=== PATIENT | female | born 1940 | race Caucasian/White ===

== ENCOUNTER 2023-07-08 08:18 | Outpatient (AMB) | payer MEDICARE, SELFPAY ==
[2023-07-08 08:21] VITALS: BP 130/82; PULSE 102; O2SAT 96; BMI 21.3
--- NOTE | 2023-07-08 08:21 | MHC.OFFWIV ---
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 Patient fell at home yesterday and landed hard on the wooden floor. She did not lose consciousness. She slipped and fell. She noticed her left forearm and wrist immediately swelling up. Physical Exam Vital Signs: Last Vital Signs Pulse 102 H 07/08/23 08:21 BP 130/82 07/08/23 08:21 Pulse Ox 96 07/08/23 08:21 Oxygen Delivery Method Room Air 07/08/23 08:21 BMI result Body Mass Index 21.3 Const General: cooperative and healthy appearing Nutritional Appearance: well nourished Orientation/consciousness: patient oriented x3 Limitations: no limitations HEENT Other: Scalp: No visible bruising. Head: Yes normal to inspection Eyes General: appearance normal, both eyes and all related structures Neck Neck: Yes normal visual inspection Chest Chest palpation & inspection: normal palpation of entire chest wall Resp Effort & Inspection: normal respiratory effort Neuro General: patient oriented x3 Extrem Other: Left forearm/wrist: Swelling on the dorsum of the forearm with pain on flexion. Significant bruising present. Assessment & Plan Assessment & Plan (1) Contusion, wrist: Code(s): S60.219A - Contusion of unspecified wrist, initial encounter Plan: X-ray images reviewed by me. Fracture of the head of radius of left wrist. Spoke to Ortho. E consult placed. They will see the patient at 1 pm for splinting. Information provided to the patient. Orders: Orders XR forearm LT 2V Today S60.219A - Contusion of unspecified wrist, initial encounter XR wrist LT min 3V Today S60.219A - Contusion of unspecified wrist, initial encounter Coding Level of Care Code New Pt Level 4 (01093) Diagnoses Contusion, wrist S60.219A
--- NOTE | 2023-07-08 09:23 | AM.OFFWIN_ITS ---
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) Allergies amoxicillin Allergy (Intermediate, Verified 07/08/23 08:39) Gastrointestinal Upset metoprolol Allergy (Intermediate, Verified 07/08/23 08:39) Unresponsive Medication List - Last Reconciled 07/08/23 by Kendall Mosqueda MD apixaban (Eliquis) 2.5 mg PO BID PFSH Medical History (Updated 07/08/23 @ 13:00 by Rachel Harden CMA) History of cardioversion Surgical History (Updated 07/08/23 @ 13:10 by Jalen Fried PA-C) H/O cardiac radiofrequency ablation Social History (Updated 07/08/23 @ 13:00 by Racehl Harden CMA) Current occupational status: retired Physical Exam Vital Signs: Last Vital Signs Pulse 102 H 07/08/23 08:21 BP 130/82 07/08/23 08:21 Pulse Ox 96 07/08/23 08:21 Oxygen Delivery Method Room Air 07/08/23 08:21 BMI result Body Mass Index 21.3 Results AMB Rapid Strep AMB Rapid Strep Negative Last Edit by Liliana Buchanan on 07/08/23 09:24 Results Reviewed Results Reviewed: Laboratory Last Values Strep Scn Rapid Clinic Negative 07/08/23 09:23 Assessment & Plan Assessment & Plan Orders: Orders XR forearm LT 2V Today S60.219A - Contusion of unspecified wrist, initial encounter XR wrist LT min 3V Today S60.219A - Contusion of unspecified wrist, initial encounter Referrals Orthopedics Referral S52.122A - Displaced fracture of head of left radius, initial encounter for closed fracture Coding
== END 2023-07-08 09:57 | disposition home or self-care (01) ==
PROVIDERS: Visit Provider Internal Medicine
DX: S60.219A Contusion of unspecified wrist, initial encounter (principal)
CPT/HCPCS: 99204

== ENCOUNTER 2023-07-08 08:35 | Outpatient (REF) | payer MEDICARE, SELFPAY ==
--- NOTE | ~2023-07-08 | XR_ITS ---
EXAMINATION: XR WRIST, LEFT XR FOREARM, LEFT CLINICAL INFORMATION: Contusion COMPARISON: None available. TECHNIQUE: 2 views left forearm 3 views of the left wrist FINDINGS: Transversely oriented mildly impacted comminuted fracture of the distal radius with intra-articular extension. Mildly displaced ulnar styloid fracture fragment. Multi joint arthritic changes. Joint space alignment are otherwise maintained. Soft tissues are unremarkable. XR/XR wrist LT min 3V IMPRESSION: 1. Transversely oriented mildly impacted comminuted fracture of the distal radius with intra-articular extension. 2. Mildly displaced ulnar styloid fracture fragment. 3. Multi joint arthritic changes.
--- NOTE | ~2023-07-08 | XR_ITS ---
EXAMINATION: XR WRIST, LEFT XR FOREARM, LEFT CLINICAL INFORMATION: Contusion COMPARISON: None available. TECHNIQUE: 2 views left forearm 3 views of the left wrist FINDINGS: Transversely oriented mildly impacted comminuted fracture of the distal radius with intra-articular extension. Mildly displaced ulnar styloid fracture fragment. Multi joint arthritic changes. Joint space alignment are otherwise maintained. Soft tissues are unremarkable. XR/XR forearm LT 2V IMPRESSION: 1. Transversely oriented mildly impacted comminuted fracture of the distal radius with intra-articular extension. 2. Mildly displaced ulnar styloid fracture fragment. 3. Multi joint arthritic changes.
== END 2023-07-08 08:36 | disposition home or self-care (01) ==
LOC: HO.HMGCX 08:35
PROVIDERS: PCP Nurse Practitioner Family; Visit Provider Internal Medicine
DX: S52.502A Unspecified fracture of the lower end of left radius, initial encounter for closed fracture (principal)
CPT/HCPCS: 73090; 73110; 99202

== ENCOUNTER 2023-07-08 12:42 | Outpatient (AMB) | payer MEDICARE, SELFPAY ==
--- NOTE | 2023-07-08 12:54 | A.OFFVIS_ITS ---
Intake Vital Signs 07/08/23 12:55 Height 5 ft 3.5 in Weight 122 lb BMI 21.3 Intake Visit Reasons: FC- Head of radius impacted fx Intake Note: Ya is an 83 year old female who presents today for a fracture care visit with complaints of left wrist injury. Patient reports that she took a fall last night, she fell backwards and used her left arm to brace for impact. The arm is feeling sore, denies numbness and tingling. She was given a velcro wrist splint and sling in the [facility]. The wrist splint is for the right wrist but was placed on the left wrist by their staff. She is taking Eliquis. Allergies amoxicillin Allergy (Intermediate, Verified 07/08/23 08:39) Gastrointestinal Upset metoprolol Allergy (Intermediate, Verified 07/08/23 08:39) Unresponsive Medication List - Last Reconciled 07/08/23 by Jalen Fried PA-C apixaban (Eliquis) 2.5 mg PO BID HPI FC- Head of radius impacted fx HPI Details 83-year-old right hand dominant female lola stephenson presents to the office today for an injury she sustained to the left wrist last night. She states she was exercising when she lost her balance and fell backwards. She states she used her left arm to brace for impact. She was seen at [facility] [place] where she was given a Velcro wrist splint and sling. She currently states she soreness and pain in her hand. She also c/o occasional numbness or tingling, likely due to the splint. She has a history of Afib and had undergone 2 heart surgeries. She is taking Eliquis. She lives at home with her who has dementia. [facility] Medical History (Updated 07/08/23 @ 21:09 by Jalen Fried PA-C) History of cardioversion Surgical History (Updated 07/08/23 @ 13:10 by Jalen Fried PA-C) H/O cardiac radiofrequency ablation Social History (Updated 07/08/23 @ 13:00 by Rachel Harden CMA) Current occupational status: retired Review of Systems Const All systems reviewed & are unremarkable except as noted in HPI and below Physical Exam Vital Signs: BMI result Body Mass Index 21.3 Const General: cooperative, healthy appearing, comfortable, no acute distress, well developed and alert Orientation/consciousness: patient oriented x3 HEENT Head: Yes normal to inspection, Yes normocephalic and Yes atraumatic Eyes General: appearance normal, both eyes and all related structures Resp Effort & Inspection: normal respiratory effort and able to speak in complete sentences Cardio Rate: regular rate Peripheral pulses: Peripheral pulses 2+ throughout GI Palpation (GI): Soft to palpation Skin Lesions: no lesions Rashes: no rashes Neuro General: patient oriented x3 Extrem Other: Left wrist: Skin intact. There is moderate swelling and minimal bruising over the distal radius with tenderness over the fracture site. There is no pain over the elbow, negative forearm squeeze test. She has full range of motion of the elbow. She can fully extend all digits and make a closed fist. Pulses are present and she is neurovascularly intact. Office Procedures Casting/Splints 71194-[id number] Splint Application Procedure code (CPT) selection complete Results AMB Rapid Strep AMB Rapid Strep Negative Last Edit by Liliana Buchanan on 07/08/23 09:24 Results Reviewed Results Reviewed: Xrays were obtained in the Urgent care clinic today show an intra articular distal radius fracture Assessment & Plan Assessment & Plan (1) Distal radius fracture, left: Code(s): S52.502A - Unspecified fracture of the lower end of left radius, initial encounter for closed fracture Qualifiers: Encounter type: initial encounter Fracture type: closed Fracture morphology: unspecified fracture morphology Qualified Code(s): S52.502A - Unspecified fracture of the lower end of left radius, initial encounter for closed fracture Plan I was able to review images with Dr Greer in the office today and discuss the case with her to determine a collaborative treatment plan. I explained to the patient the extent of the injury and options available. We can treat this conservatively but will have to watch her very closely to make sure there is no displacement. She was placed in a custom molded sugartong splint today. She would have to do no lifting more than a cell phone. This would mean no lifting, carrying, pushing, pulling, or repetitive use of the left upper extremity at home. I did explain to her that conservative treatment would likely be a splint/ cast for 6 weeks. If there is some displacement that occurs, we may need to discuss surgical intervention which could require pinning versus plate and screws. I also educated him on the risk factors of potentially poor bone quality can have on healing. We discussed the risk of bleeding with Chase if she did end up needing surgery. She does understand all this and will see Dr Greer next week with splint off and xrays. Fracture care code was NOT billed at today's appt as we are going to re-asses patient next week to determine whether or not surgical intervention is warranted. Patient Instructions: Scribed for Jalen Fried PA-C, by Fred Gupta medical and health services manager, on 07/08/2023 at 1:00 PM EST. [place], Jalen Fried PA-C, have personally reviewed and agree with the information entered by the scribe. Coding Level of Care Code New Pt Level 4 (28608) Diagnoses Closed fracture of distal end of left radius, unspecified fracture morphology, initial encounter S52.502A Encounter type: initial encounter Fracture type: closed Fracture morphology: unspecified fracture morphology CPT Codes Splint - CPT: 59137-Qpcocuq Splint Application ([id number])
[2023-07-08 12:55] VITALS: BMI 21.3
== END 2023-07-08 21:14 | disposition home or self-care (01) ==
PROVIDERS: PCP Nurse Practitioner Family; Visit Provider Physician Assistant
DX: S52.502A Unspecified fracture of the lower end of left radius, initial encounter for closed fracture (principal)
CPT/HCPCS: 25600; 25605; 99204

== ENCOUNTER 2023-07-14 11:31 | Outpatient (REF) | payer MEDICARE, SELFPAY ==
--- NOTE | ~2023-07-14 | XR_ITS ---
EXAMINATION: XR WRIST, LEFT CLINICAL INFORMATION: Pain in left wrist. COMPARISON: 07/08/2023 report only. Unable to access prior images for direct comparison at time of interpretation. TECHNIQUE: PA, lateral, and oblique views of the left wrist. FINDINGS: There is a transverse, comminuted, impacted fracture of the distal radius with intra-articular extension and mild displacement of fracture fragments, as described in the report only for exam of 07/08/2023. The bones are diffusely demineralized. Avulsion of the ulnar styloid was also described in prior report. Arthritic changes in multiple joints as previously noted. XR/XR wrist LT min 3V IMPRESSION: Unable to access prior images for direct comparison at time of interpretation. A comminuted fracture of the distal radius with intra-articular extension is also described in the report only for exam of 07/08/2023. Avulsion of the ulnar styloid was also described in prior report.
== END 2023-07-14 11:32 | disposition home or self-care (01) ==
LOC: HO.HOSX 11:31
PROVIDERS: Visit Provider Orthopaedic Surgery
DX: S52.502A Unspecified fracture of the lower end of left radius, initial encounter for closed fracture (principal); X58.XXXA Exposure to other specified factors, initial encounter; Y93.9 Activity, unspecified; Y92.9 Unspecified place or not applicable; Y99.9 Unspecified external cause status
CPT/HCPCS: 73110; 99212

== ENCOUNTER 2023-07-14 12:17 | Outpatient (AMB) | payer MEDICARE, SELFPAY ==
--- NOTE | 2023-07-14 12:19 | MHC.OFFVIS ---
Intake Vital Signs 07/14/23 12:21 Height 5 ft 3.5 in Weight 122 lb BMI 21.3 Intake Visit Reasons: OV-Left distal radius FC Intake Note: Ya 83 yr old female presents today for her follow up visit for her distal end of left radius DOI: 07/07/23. She states she was exercising when she lost her balance and fell backwards. She used her left arm to brace for impact. Seen with Kelsey Fiore who placed patient in a sugar tong splint. Currently states she has mild discomfort. XRays updated in office. Allergies amoxicillin Allergy (Intermediate, Verified 07/14/23 12:24) Gastrointestinal Upset metoprolol Allergy (Intermediate, Verified 07/14/23 12:24) Unresponsive HPI OV-Left distal radius FC HPI Details Ya is an 83 year old right hand dominant woman who presents for a follow up of her left distal radius fracture, S/P fall, DOI: 07/07/23. She was seen by MARTHA Fiore on 07/08/23,placed in a Sugar-Tong splint and referred to me to be re-evaluated.. She says she has some mild discomfort but this is feeling better than before. She does say she has more pain in her thumb, especially with motion or grabbing items. She has a hx of Afib, prior heart surgeries, and is on Eliquis. She lives at home with her , who has dementia. [facility] Medical History (Updated 07/08/23 @ 21:09 by Jalen Fried PA-C) History of cardioversion Surgical History H/O cardiac radiofrequency ablation Social History Current occupational status: retired Review of Systems Const All systems reviewed & are unremarkable except as noted in HPI and below Physical Exam Vital Signs: BMI result Body Mass Index 21.3 Const General: cooperative, healthy appearing and no acute distress Orientation/consciousness: patient oriented x3 HEENT Head: Yes normocephalic and Yes atraumatic Eyes EOM: EOMs intact bilaterally Resp Effort & Inspection: normal respiratory effort and able to speak in complete sentences Cardio Jugular venous distension: no JVD Skin General skin exam: turgor normal Rashes: no rashes Neuro General: patient oriented x3 Extrem Other: Evaluation of Left Upper Extremity: The patient is alert, oriented, and in no acute distress Neuro: Median, Ulnar, Radial nerves motor and sensory intact Vascular: Cap refill brisk ROM: She can bring her fingers closed to a weak fist and back into full extension without difficulty Skin: No lacerations or abrasions. General: No Erythema or evidence of infection. Resolving ecchymosis & swelling Radiographs: 3 views of the left wrist were taken and viewed by me today in clinic. They show an intra-articular distal radius fracture with ~8 degrees of apex volar angulation & ~1-2mm of step-off of the radial styloid piece, with fracture alignment unchanged from last week.. Psych Appearance: grossly normal Affect: normal affect Attitude: cooperative Office Procedures Fracture Care Details: Fracture code distal radius 59021 Fracture Billing Code: Fracture Billing Code Assessment & Plan Assessment & Plan (1) Distal radius fracture, left: Code(s): S52.502A - Unspecified fracture of the lower end of left radius, initial encounter for closed fracture Qualifiers: Encounter type: initial encounter Fracture morphology: unspecified fracture morphology Fracture type: closed Qualified Code(s): S52.502A - Unspecified fracture of the lower end of left radius, initial encounter for closed fracture Plan Assessment & Plan: 1. Left distal radius fracture, intra-articular S/P fall, DOI: 07/07/23 The patient is 83 years old and on Eliquis for AFib. I educated her about this condition I discussed operative and non-operative treatment options I recommend we continue to manage this non-operatively and she is in agreement with this plan. She was placed in a short-arm cast to be worn for the next 3 weeks I discussed activity modification, she is to lift nothing heavier than a cellphone for the next 3 weeks She will work on gentle finger ROM exercises at home She will follow up in 3 weeks, with X-rays, 3V L wrist, OOP. Hopefully we can switch her to a Velcro wrist splint next visit. Scribed for Matilde Greer MD by Silvestre Barrientos, medical insurance biller, on 07/14/23 at 1:05 PM, EST. Orders: Orders XR wrist LT min 3V Today M25.532 - Pain in left wrist Coding Level of Care Code Est Pt Level 3 (41964) Diagnoses Closed fracture of distal end of left radius, unspecified fracture morphology, initial encounter S52.502A Encounter type: initial encounter Fracture morphology: unspecified fracture morphology Fracture type: closed CPT Codes Fracture Care - Fracture Billing Code: Fracture Billing Code ([id number])
[2023-07-14 12:21] VITALS: BMI 21.3
== END 2023-07-14 13:43 | disposition home or self-care (01) ==
PROVIDERS: PCP Nurse Practitioner Family; Visit Provider Orthopaedic Surgery
DX: S52.502A Unspecified fracture of the lower end of left radius, initial encounter for closed fracture (principal)
CPT/HCPCS: 29075; 99024

== ENCOUNTER 2023-08-04 08:51 | Outpatient (REF) | payer MEDICARE, SELFPAY ==
--- NOTE | ~2023-08-04 | XR_ITS ---
EXAMINATION: XR WRIST, LEFT CLINICAL INFORMATION: Pain in left wrist. COMPARISON: 07/14/2023, 07/08/2023. TECHNIQUE: PA, lateral, and oblique views of the left wrist. FINDINGS: The bones are diffusely demineralized. Redemonstration of transverse, mildly impacted intra-articular, comminuted fracture of the distal radius. There has been some interval bridging callus formation. Redemonstration of mildly displaced ulnar styloid fracture fragment. Multi joint arthritic changes. Bones are diffusely demineralized. XR/XR wrist LT min 3V IMPRESSION: 1. Redemonstration of transverse, mildly impacted intra-articular, comminuted fracture of the distal radius. There has been some interval bridging callus formation. 2. Redemonstration of mildly displaced ulnar styloid fracture fragment.
== END 2023-08-04 08:52 | disposition home or self-care (01) ==
LOC: HO.HOSX 08:51
PROVIDERS: Visit Provider Orthopaedic Surgery
DX: S52.502D Unspecified fracture of the lower end of left radius, subsequent encounter for closed fracture with routine healing (principal)
CPT/HCPCS: 73110; 99212

== ENCOUNTER 2023-08-04 12:04 | Outpatient (AMB) | payer MEDICARE, SELFPAY ==
--- NOTE | 2023-08-04 12:24 | MHC.OFFVIS ---
Intake Vital Signs 08/04/23 12:27 Height 5 ft 3.5 in Weight 112 lb BMI 19.5 Handedness Right Intake Visit Reasons: OV-Left distal radius FC Intake Note: Ya 83 yr old female presents today for her follow up visit for her distal end of left radius DOI: 07/07/23 Cast removed and xrays updated in office. States she has soreness due to cast. Allergies amoxicillin Allergy (Intermediate, Verified 08/04/23 12:28) Gastrointestinal Upset metoprolol Allergy (Intermediate, Verified 08/04/23 12:28) Unresponsive HPI OV-Left distal radius FC HPI Details Ya is an 83 year old right hand dominant woman who returns for a follow up of her left distal radius fracture, S/P fall, DOI: 07/07/23. She is seen today with her [id number]. She says she has some pain & stiffness in her wrist due to her cast, and is happy to have it removed. She has a hx of Afib, prior heart surgeries, and is on Eliquis. She lives at home with her , who has dementia. [facility] Medical History (Updated 07/08/23 @ 21:09 by Jalen Fried PA-C) History of cardioversion Surgical History H/O cardiac radiofrequency ablation Social History Current occupational status: retired Physical Exam Vital Signs: BMI result Body Mass Index 19.5 Extrem Other: Evaluation of Left Upper Extremity: The patient is alert, oriented, and in no acute distress Neuro: Median, Ulnar, Radial nerves motor and sensory intact Vascular: Cap refill brisk ROM: She could bring her fingertips almost to her palm, and back into full extension Wrist pronation: ~50 degrees Wrist supination: ~50 degrees Wrist flexion & extension: ~10 degrees each Skin: No lacerations or abrasions. General: No Erythema or evidence of infection. Resolved ecchymosis & swelling Minimal tenderness over the fracture site Radiographs: 3 views of the left wrist were taken and viewed by me today in clinic. They show an intra-articular distal radius fracture with ~8 degrees of apex volar angulation & ~1-2mm of step-off of the radial styloid piece, with fracture alignment unchanged from last visit, and some evidence of interval bony healing. Assessment & Plan Assessment & Plan (1) Distal radius fracture, left: Code(s): S52.502A - Unspecified fracture of the lower end of left radius, initial encounter for closed fracture Qualifiers: Encounter type: initial encounter Fracture morphology: unspecified fracture morphology Fracture type: closed Qualified Code(s): S52.502A - Unspecified fracture of the lower end of left radius, initial encounter for closed fracture Plan Assessment & Plan: 1. Left distal radius fracture, intra-articular S/P fall, DOI: 07/07/23 The patient is 83 years old and on Eliquis for AFib. I educated her about this condition She appears to be doing well. I discussed operative and non-operative treatment options I recommend we continue to manage this non-operatively and she is in agreement with this plan. She was fitted for a velcro wrist splint to be worn for the next two weeks. After 2 weeks she will remove her splint when at rest, and work on gentle ROM exercises out of her splint She will continue to wear her splint with activities for the following 2 weeks. I discussed activity modification, she is to lift nothing heavier than a cellphone for the next 2 weeks. She is to avoid any impact type activities or activities prone to falling for the next 4 weeks She will work on wrist pronosupination and finger ROM exercises at home. She should avoid wrist flexion & extension for at least another 2 weeks. I ordered OT hand therapy to work on wrist & finger ROM exercises, to begin no sooner than 08/18/23 She will follow up in 4 weeks, with X-rays, 3V L wrist Scribed for Matilde Greer MD by Silvestre Barrientos, medical affairs specialist, on 08/04/23 at 12:45 PM, EST. Orders: Orders OT Evaluation and Treatment Today S52.502A - Unspecified fracture of the lower end of left radius, initial encounter for closed fracture XR wrist LT min 3V Today M25.532 - Pain in left wrist Coding Level of Care Code Global (64751) Diagnoses Closed fracture of distal end of left radius, unspecified fracture morphology, initial encounter S52.502A Encounter type: initial encounter Fracture morphology: unspecified fracture morphology Fracture type: closed
[2023-08-04 12:27] VITALS: BMI 19.5
== END 2023-08-04 13:12 | disposition home or self-care (01) ==
PROVIDERS: PCP Nurse Practitioner Family; Visit Provider Orthopaedic Surgery
DX: S52.502A Unspecified fracture of the lower end of left radius, initial encounter for closed fracture (principal)
CPT/HCPCS: 99024

== ENCOUNTER 2023-09-01 10:06 | Outpatient (REF) | payer MEDICARE, SELFPAY ==
--- NOTE | ~2023-09-01 | XR_ITS ---
EXAMINATION: XR WRIST, LEFT CLINICAL INFORMATION: Pain in the left wrist COMPARISON: Multiple prior right breast most recent 08/04/2023 TECHNIQUE: PA, lateral, and oblique views of the left wrist. FINDINGS: Mildly displaced intra-articular fracture the distal radius redemonstrated with unchanged alignment. There is some increased sclerosis and decreased conspicuity of the fracture indicative of progressing healing. Displaced ulnar styloid fracture redemonstrated unchanged. No additional findings. XR/XR wrist LT min 3V IMPRESSION: 1. Healing distal radius fracture with unchanged alignment. 2. Unchanged ulnar styloid fracture.
== END 2023-09-01 10:07 | disposition home or self-care (01) ==
LOC: HO.HOSX 10:06
PROVIDERS: Visit Provider Orthopaedic Surgery
DX: M25.532 Pain in left wrist (principal); M25.642 Stiffness of left hand, not elsewhere classified; S52.502D Unspecified fracture of the lower end of left radius, subsequent encounter for closed fracture with routine healing; W19.XXXD Unspecified fall, subsequent encounter
CPT/HCPCS: 73110; 99212

== ENCOUNTER 2023-09-01 12:00 | Outpatient (AMB) | payer MEDICARE, SELFPAY ==
--- NOTE | 2023-09-01 12:31 | A.OFFVIS_ITS ---
Vital Signs 09/01/23 12:37 Height 5 ft 3.5 in Weight 112 lb BMI 19.5 Intake Visit Reasons: OV - Left Distal Radius Fx 07/07/23 Intake Note: Ya 83 yr old female presents today for her follow up visit for her distal end of left radius DOI: 07/07/23 ROM check. States she has been working with O.T and is noticing some improvement . Allergies amoxicillin Allergy (Intermediate, Verified 09/01/23 12:37) Gastrointestinal Upset metoprolol Allergy (Intermediate, Verified 09/01/23 12:37) Unresponsive HPI HPI OV - Left Distal Radius Fx 07/07/23: Details: Ya is an 83 year old right hand dominant woman who returns for a follow up of her left distal radius fracture, S/P fall, DOI: 07/07/23. She is seen today with her son. She is here for a ROM check. She has been attending OT hand therapy and feels that her wrist ROM has improved, but she continues to have difficulty with finger ROM and making a fist. She complains of pain in her hand, and says this is present most of the time . Her pain is near the base of her thumb & [ ]. She has a hx of Afib, prior heart surgeries, and is on Eliquis. She lives at home with her , who has dementia. [facility] Medical History (Updated 09/01/23 @ 13:08 by Silvestre Barrientos) History of cardioversion Surgical History H/O cardiac radiofrequency ablation Social History Current occupational status: retired Physical Exam Vital Signs: BMI result Body Mass Index 19.5 Extrem Other: Evaluation of Left Upper Extremity: The patient is alert, oriented, and in no acute distress Neuro: Median, Ulnar, Radial nerves motor and sensory intact Vascular: Cap refill brisk ROM: Initially she could actively bring her fingers ~1-2cm from her palm, and back into almost full extension We worked on ROM exercises today in clinic, before leaving she could actively bring her fingers to ~1cm from her palm Wrist pronation: ~70 degrees Full & symmetrical wrist supination Wrist flexion: ~30 degrees Wrist extension: ~35 degrees No tenderness over the fracture site Tenderness over the dorsal aspect of the 2nd-5th CMC joints Mild swelling over dorsal aspect of wrist Radiographs: 3 views of the left wrist were taken and viewed by me today in clinic. They show an intra-articular distal radius fracture with ~8 degrees of apex volar angulation & ~1-2mm of step-off of the radial styloid piece, with fracture alignment unchanged from last visit, and evidence of interval bony healing. Assessment & Plan Assessment & Plan (1) Distal radius fracture, left: Code(s): S52.502A - Unspecified fracture of the lower end of left radius, initial encounter for closed fracture Category: Medical Qualifiers: Encounter type: initial encounter Fracture morphology: unspecified fracture morphology Fracture type: closed Qualified Code(s): S52.502A - Unspecified fracture of the lower end of left radius, initial encounter for closed fracture (2) Stiffness of left hand joint: Code(s): M25.642 - Stiffness of left hand, not elsewhere classified Category: Medical Plan Assessment & Plan: 1. Left distal radius fracture, intra-articular S/P fall, DOI: 07/07/23 The patient is 83 years old and on Eliquis for AFib. 2. Left hand stiffness I educated her about this condition She appears to be doing well. She has improved her wrist ROM but continues to have difficulty with finger ROM She will discontinue her splint at this time, and should only wear her splint when out of the house in crowded areas for the next [ ] weeks I discussed activity modification, she is to use her hand for light & medium weight activities, slowly increasing her weight limit as tolerated. She is to avoid any impact type activities or activities prone to falling for the next 2 weeks She will continue to work on wrist ROM and finger ROM exercises at home. She will continue to attend OT hand therapy to work on ROM She again had questions about when she can return to driving. I explained that she needs to focus on improving her ROM prior to considering driving. She can speak with OT concerning this She can follow up in 6 weeks, no X-rays She may cancel this if she is doing well Scribed for Matilde Greer MD by Silvestre Barrientos, certified medical coding specialist, on 09/01/23 at 1:05 PM, EST. Orders: Orders XR wrist LT min 3V Today M25.532 - Pain in left wrist Coding Level of Care Code Global (33117) Diagnoses Closed fracture of distal end of left radius, unspecified fracture morphology, initial encounter S52.502A Encounter type: initial encounter Fracture morphology: unspecified fracture morphology Fracture type: closed Stiffness of left hand joint M25.642
[2023-09-01 12:37] VITALS: BMI 19.5
== END 2023-09-01 13:20 | disposition home or self-care (01) ==
PROVIDERS: PCP Nurse Practitioner Family; Visit Provider Orthopaedic Surgery
DX: S52.502A Unspecified fracture of the lower end of left radius, initial encounter for closed fracture (principal); M25.642 Stiffness of left hand, not elsewhere classified
CPT/HCPCS: 99024

== ENCOUNTER 2023-09-08 13:30 | Outpatient (RCR) | payer MEDICARE, SELFPAY ==
--- NOTE | 2023-08-17 08:32 | MHC.OT.EP ---
[address] [phone] Occupational Therapy Plan of Care Patient Name: Ya Turner Date of Evaluation: 08/17/23 Diagnosis: Left DRF Pain Location: Left dorsal and volar hand, left thumb/radial wrist Sharp pain w/ some attempted use but stops immediately Pain Score: 0 Pain Scale Used: Numeric (0 - 10) Aggravating Factors: General use and movement Alleviating Factors: Baby aspirin (only if needed) Not tried cold or heat Assessment: 83 yo female was exercising at home, lost her balance and fell onto her left side. She was seen in walk-in clinic the next day and referred to [facility] w/ left comminuted, impacted, intraarticular distal radius fracture, where she was placed in custom splint. She had follow up the next week w/ Dr Greer and placed in short arm cast, then velcro brace on 08/03 and referred to OT to start ROM 08/18/23. Today on assessment, she reports she has started to wean from brace wear but at times continues to have sharp pain in volar and dorsal wrist. She is sleeping fairly well, but not driving and having difficulty with most home tasks, but using dominant right hand and getting things done slowly w/ one hand technique. She has decreased digit range, but after brief treatment is able to come 5 cm tip-palm to 1 cm tip-palm. Wrist range is limited but we have introduced gentle AROM exercises, strengthening deferred at this time. I anticipate she will do well w/ course of hand therapy with ultimate goal of full pain free use of left hand. Frequency and Duration: The patient will be seen 2x/wk 6 weeks Short Term Goals: Ind w/ HEP Wean from brace wear Good use of left hand w/ light bimanual tasks (tying shoes, jewelly, etc) Pt to demo full tip-palm grasp w/ ease Ind w/ use of ice/heat as needed for comfort and edema Back Hand Goals: Pain free use of left wrist w/ bimanual home tasks (dishes, laundry) Left gross grasp >20lb Wrist ext 60 Wrist flex 50 Wrist sup 70 Wrist pro 70 QuickDASH score <35 pts Treatment Plan: Therapeutic Exercise Therapeutic Activity Home Exercise Program Splinting Patient Education Edema Control ADL Training Paraffin Fluidotherapy MHP Cold Packs Joint Mobilization Soft Tissue Mobilization Kinesiotaping Electronically Signed By: Emely Cancino OTR/L CHT Please Sign and return to therapist. Thank you once again for your referral.
--- NOTE | 2023-08-31 13:12 | MHC.OT.OP ---
[address] [phone] F: [phone] Occupational Therapy Progress Note Patient Name: Ya Turner Diagnosis: Left DRF Date of Surgery: Date of Evaluation: 08/17/23 Treatments to Date: 3 Cancellations to Date: No Shows to Date: Subjective: SOMETIMES I DO THE EXERCISES AND WAKE UP THE NEXT DAY AND FEEL LIKE I'M BACK AT ZERO Pain Score: 6 Pain Location: left wrist Objective Measures: L WRIST 48/35 -> 52/50 POST-TX DIGIT FLEX 4 CM TIP-PALM -> 1 CM POST-TX (PASSIVE TIP-PALM) UNABLE TO TEST GROSS GRASP DUE TO LIMITED DIGIT RANGE Status: Progressing Assessment: ABOUT 8 WEEKS S/P INJURY WEARING ORTHOSIS ONLY WHEN SHE GOES OUT, REPORTS INCREASED USE OF LEFT HAND FOR LIGHT THINGS IMPROVING DIGIT AND WRIST ROM STILL W/ VERY LIMITED ACTIVE DIGIT RANGE, BUT IMPROVES AFTER HEAT, STRETCH AND MUSCLE ACTIVATION Short Term Goals: Ind w/ HEP Wean from brace wear Good use of left hand w/ light bimanual tasks (tying shoes, jewelly, etc) Pt to demo full tip-palm grasp w/ ease Ind w/ use of ice/heat as needed for comfort and edema Seismograph Chief Goals: Pain free use of left wrist w/ bimanual home tasks (dishes, laundry) Left gross grasp >20lb Wrist ext 60 Wrist flex 50 Wrist sup 70 Wrist pro 70 QuickDASH score <35 pts Frequency and Duration: The patient will be seen 2x/wk for 4 weeks Treatment Plan: Therapeutic Exercise Therapeutic Activity Home Exercise Program Patient Education Edema Control ADL Training Paraffin Fluidotherapy MHP Cold Packs Joint Mobilization Soft Tissue Mobilization Kinesiotaping Electronically Signed By: DEBBI MCCARTHY/L CHT Reviewed/agree with student documentation: N/A Therapist:
--- NOTE | 2023-09-16 13:43 | MHC.OT.DC ---
[address] [phone] F: [phone] Occupational Therapy Discharge Note Patient Name: Ya Turner Provider: Dr Matilde Greer Diagnosis: Left DRF Date of Evaluation: 08/17/23 Date of Discharge: 09/16/23 Treatments to Date: 5 Discharge Status: Discharge Summary: Ya is now about 10 weeks s/p left DRF, she has been doing well w/ home program, still moderate stiffness in digits and wrist, but low pain and improving daily function. This past week, she has developed LE weakness requiring inpatient hospital work-up at [facility] and is now transferring to short term rehab in [place] for further care and therapy prior to returning home. We have followed up with her during her inpatient stay and she continues to be motivated and completing HEP. Acute hospital stay requires d/c from services and we will re-eval at later time if still needed. Electronically Signed By: NEGAR PEREZ OTR/Bhavna CHT Reviewed/agree with student documentation: N/A Therapist: Please Sign and return to therapist, thank you for your referral.
== END 2023-10-06 08:51 | disposition home or self-care (01) ==
LOC: HO.OT 13:30
PROVIDERS: PCP Nurse Practitioner Family; Visit Provider Orthopaedic Surgery
DX: S52.502D Unspecified fracture of the lower end of left radius, subsequent encounter for closed fracture with routine healing (principal)
CPT/HCPCS: 97110; 97140; 97165

== ENCOUNTER 2023-09-09 11:34 | Inpatient (IN) | payer MEDICARE, SELFPAY ==
[2023-09-09] VITALS (9 sets, daily range): BP systolic 134–175; BP diastolic 75–94; PULSE 71–97; RESP 14–22; TEMP 36.6–36.7; O2SAT 94–97; BMI 22.2
--- NOTE | ~2023-09-09 | MR_ITS ---
EXAMINATION: MR CERVICAL SPINE WITHOUT CONTRAST CLINICAL INFORMATION: Difficulty walking and falling COMPARISON: None TECHNIQUE: MRI of the cervical spine was obtained using routine sequences without contrast. FINDINGS: Motion degraded examination. Trace retrolisthesis of C5 on C6. Heterogeneous marrow signal without suspicious focal osseous lesion. T5 vertebral body hemangioma. Endplate marrow edema at C5-C6. The vertebral body heights are maintained. Disc signal and height loss at C5-C6 and C6-C7.No definite signal abnormality of the cervical cord within the limitations of motion artifact. Limited evaluation of the soft tissues of the neck without demonstrated abnormalities. The flow voids of the major cervical vessels are maintained. Normal appearance of the cervicomedullary junction and visualized posterior fossa SPINAL LEVELS: C2-C3: No significant spinal canal or neuroforaminal narrowing. Mild facet arthropathy. C3-C4: No significant spinal canal or neuroforaminal narrowing. Mild facet arthropathy. C4-C5: Right greater than left facet and uncovertebral hypertrophy. Severe right neural foraminal narrowing. No significant central spinal canal stenosis. C5-C6: Retrolisthesis. Disc osteophyte complex. Ligamentum flavum infolding. Facet arthropathy and uncovertebral hypertrophy. Severe spinal canal stenosis with mild cord flattening. Suspected severe right and moderate left neural foraminal narrowing. C6-C7: Disc osteophyte complex. Mild facet and uncovertebral hypertrophy. Mild central spinal canal stenosis. Suspected severe left and mild right neural foraminal narrowing. C7-T1: No significant spinal canal or neuroforaminal narrowing MR/MR cervical spine wo con IMPRESSION: Motion degraded examination. 1. At C5-C6, there is trace retrolisthesis and multifactorial degenerative changes resulting in severe spinal canal stenosis with mild cord flattening and suspected severe right and moderate left neural foraminal narrowing. No definite cord signal abnormality within the limitations of motion. 2. At C6-C7, there is mild spinal canal stenosis and suspected severe left and mild right neural foraminal narrowing. 3. At C4-C5, there is severe right neural foraminal narrowing.
--- NOTE | ~2023-09-09 | XR_ITS ---
EXAMINATION: XR chest 1V CLINICAL INFORMATION: Reason for Exam Dizziness, weakness, rule out pneumonia COMPARISON: No prior chest x-ray available for comparison. TECHNIQUE: Single portable frontal view. Tubes and lines: None Lungs and pleura: There is a right suprahilar opacity 1.2 cm superimposed on the right posterior sixth rib could be a summation of shadows, versus lung nodule. Lungs otherwise are clear. Bilateral costochondral calcifications. Left subpulmonic pleural effusion obscuring the costophrenic angle. Heart and mediastinum: The mediastinum is within normal limits.. Bones/soft tissue: Skeletal structures included are normal for patient's age. XR/XR chest 1V IMPRESSION: * Small left subpulmonic pleural effusion. * 1.2 cm opacity superimposed on the right posterior sixth rib could be a summation of shadows VERSUS LUNG NODULE. RECOMMEND CORRELATION WITH FOLLOW-UP CHEST CT. * Bilateral costochondral calcifications. * No radiographic evidence of pneumonia. (Referring physician staff is being called, by physician staff assistance, to be alerted of the above critical findings and recommendations.) 09/09/2023 2:59 PM Tc
--- NOTE | ~2023-09-09 | US_ITS ---
EXAMINATION: US EXTRACRANIAL CAROTID DUPLEX, BILATERAL CLINICAL INFORMATION: Posterior CVA COMPARISON: None available. TECHNIQUE: Real-time ultrasound and Doppler techniques (integrating B-mode 2-D vascular images, Doppler spectral analysis and color-flow Doppler imaging) were utilized to interrogate the extracranial carotid arteries, the vertebral arteries and proximal subclavian arteries bilaterally. The degree of stenosis is determined by criteria similar to NASCET. FINDINGS: Right Side: 1. There is no significant atherosclerotic plaque seen in the bifurcation/proximal ICA region. 2. The common carotid artery PSV proximally is 127 cm/s and distally 117 cm/s. 3. The proximal internal carotid artery velocities are 65 cm/s systolic and 8 cm/s diastolic. 4. The proximal external carotid artery PSV is 65 cm/s. 5. The vertebral artery shows antegrade flow. 6. The subclavian artery waveforms are normal. Left Side: 1. There is no significant atherosclerotic plaque seen in the bifurcation/proximal ICA region. 2. The common carotid artery PSV proximally is 148 cm/s and distally 76 cm/s. 3. The proximal internal carotid artery velocities are 46 cm/s systolic and 13 cm/s diastolic. 4. The proximal external carotid artery PSV is 85 cm/s. 5. The vertebral artery shows antegrade flow. 6. The subclavian artery waveforms are normal. US/US carotid duplex BI IMPRESSION: 1. RIGHT: Normal right internal carotid artery without atherosclerotic plaque or hemodynamically significant stenosis. 2. LEFT: Normal left internal carotid artery without atherosclerotic plaque or hemodynamically significant stenosis.
--- NOTE | ~2023-09-09 | CT_ITS ---
EXAMINATION: CT HEAD WITHOUT CONTRAST CLINICAL INFORMATION: Mechanical fall, on Eliquis, imbalance COMPARISON: None available. TECHNIQUE: Contiguous axial imaging was performed from the skull base to vertex without intravenous administration of contrast. This CT examination was performed using dose optimization techniques as appropriate, variously including the following: *Automated exposure control *Adjustment of mA and/or kV according to patient size (this includes techniques or standardized protocols for targeted exams where dose is matched to indication/reason for exam; i.e. extremities or head) *Use of iterative reconstruction technique DLP: 571 mGy-cm FINDINGS: Ventricles, sulci and cisterns are dilated. Bilateral frontal and parietal deep white matter shows abnormal decrease in attenuation, most extensive in bilateral parietal lobes. Anterior bilateral external capsules also show decreased attenuation. There is no midline shift, no abnormal intra- or extra- axial fluid accumulation. [place]ell and white matter differentiation is normal. Bone window images show no evidence of skull fracture. CT/CT head/brain wo IV con IMPRESSION: 1. 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 2. No intracranial hemorrhage or skull fracture is seen. 3. No evidence of space occupying lesion could be found. 4. The current plain CT scan of the brain shows no diagnostic evidence of acute cerebral infarction.
--- NOTE | ~2023-09-09 | MR_ITS ---
EXAMINATION: MR BRAIN WITHOUT CONTRAST CLINICAL INFORMATION: Ataxia, evaluate for posterior CVA COMPARISON: Same-day CT head TECHNIQUE: MRI of the brain was obtained using routine sequences without contrast. FINDINGS: There is no reduced diffusion to suggest acute infarct. Small chronic lacunar infarction in the left cerebellar hemisphere. Susceptibility weighted sequence is within normal limits. No mass effect, extra-axial collection, midline shift, or other herniation. Generalized cerebral volume loss with associated ventricular and sulcal prominence. Periventricular and subcortical T2/FLAIR hyperintense foci are nonspecific but likely represent moderate chronic microvascular ischemic change. Intracranial flow voids are preserved. Trace ethmoid air cell mucosal thickening. The mastoid air cells are well-aerated. Bilateral intraocular lens replacements. No focal expansile or destructive osseous lesion. MR/MR head/brain wo con IMPRESSION: No restricted diffusion to suggest acute infarction. Small chronic lacunar infarction in the left cerebellar hemisphere. Moderate generalized cerebral volume loss and chronic microvascular ischemic change.
--- NOTE | 2023-09-09 11:40 | ED.FALL ---
HPI - Fall General Chief Complaint: Dizziness Stated Complaint: [facility] fall w/head strike & broken wrist. Dizziness Time Seen by Provider: 09/09/23 11:36 Source: patient Mode of arrival: EMS Limitations: no limitations History of Present Illness ED Provider: Dr. Ramiro Mccurdy HPI Narrative: 83-year-old female with a history of atrial fibrillation on Eliquis who presents emergency department for evaluation of feeling off balance. The patient states that she had a fall on 07/07/2023. She fell backwards and struck her head. She also fractured her left distal radius. Patient was seen in urgent care clinic and then referred to Orthopedics for management of her radius fracture. The patient states that since the fall she has been feeling unsteady on her feet and it is gotten progressively worse over the past 2 weeks. She states that whenever she stands she feels off balance in her legs feel weak. She states that she bought a cane 2 days ago and this is not helping her with her ability to walk. She called her PCP and was evaluated today. She was found to have orthostatic blood pressures and was sent to the emergency department by ambulance for evaluation. Patient states that she has been having right-sided headache since the fall. She states she has had a good appetite and has been drinking normally. She states that the off-balance sensation is worse when she tries to stand up since her legs are very weak. Patient was review of systems was negative for fever, chills, rhinorrhea, sore throat, cough, chest pain, shortness of breath, dyspnea exertion, nausea, vomiting, diarrhea, dark tarry stools or bloody stools, frequency, urgency or dysuria. Related Data Home Medications ?Medication ?Instructions ?Recorded ?Confirmed apixaban 2.5 mg tablet (Eliquis) 2.5 mg PO BID 07/08/23 07/08/23 Allergies Allergy/AdvReac Type Severity Reaction Status Date / Time amoxicillin Allergy Intermediate Gastrointestinal Verified 09/09/23 11:54 Upset metoprolol Allergy Intermediate Unresponsiv Verified 09/09/23 11:54 e metronidazole [From Flagyl] Allergy Unknown Verified 09/09/23 11:55 Review of Systems Review of Systems: Yes all other systems are reviewed and are negative [facility] Past Medical History [facility] Narrative: Social history: She denies tobacco use. She denies alcohol use. She denies drug use. Medical History (Updated 09/09/23 @ 15:21 by Ramiro Mccurdy MD) History of cardioversion Surgical History H/O cardiac radiofrequency ablation Social History Social History Smoked in Last 30 Days: No Use of substances other than those prescribed or required for medical reasons: No Advance Directives: No Advance Directives Information Provided: Yes Do you have a plan to hurt others: No Plan Current occupational status: retired Physical Exam Vital Signs: Vital Signs: Last Vital Signs Temp 98.1 F 09/09/23 14:57 Pulse 87 09/09/23 14:57 Resp 22 H 09/09/23 14:57 BP 168/75 H 09/09/23 14:57 Pulse Ox 97 09/09/23 14:57 O2 Del Method Room Air 09/09/23 14:57 BMI result Body Mass Index 22.2 Vital signs were normal. Orthostatic vital signs were reviewed by me: Lying: Blood pressure 141/75, heart rate 79 Sitting: Blood pressure 134/80, heart rate 95 Standing: Blood pressure 134/80, heart rate 99 The patient did have a 20 point increase in her heart rate 79-99 but no change in her blood pressure. Patient states she had not feel symptomatic from lying to sitting but did feel shaky when she stood up however she was more off balance then light headed. Exam: General: Awake, alert in no distress Head: Normocephalic, atraumatic EENT: PERRL, Lids normal, sclera normal, conjunctiva normal, nose normal , ears normal, throat without erythema or exudates Neck: Supple, no adenopathy Lung: breath sounds symmetric, no wheezing, rales or rhonchi Chest: symmetric movement, nontender Heart: regular rate and rhythm, normal S1, S2 no murmurs or rubs Abdomen: soft, non-tender, nondistended, normal bowel sounds Rectal: Normal external exam, normal rectal tone, brown stool which was Hemoccult negative on my bedside testing, control was positive Back: no vertebral tenderness, no CVAT Extremities: no deformities, moves all extremities symmetrically Neuro: Awake, alert, oriented, normal speech, cranial nerves intact, moves all extremities symmetrically, good [id number]-[id number]-vnkr-to-finger, normal heel to boyer, when the patient stands she has a wide-based gait, she appears to be very weak with standing and can not take a step secondary to her weakness. Psych: Pleasant, cooperative Medications Administered Discontinued Medications Generic Name Dose Route Start Last Admin Trade Name Ezra PRN Reason Stop Dose Admin Sodium Chloride 1,000 mls @ 999 mls/hr 09/09/23 11:57 09/09/23 14:25 Ns IV 09/09/23 12:57 Infused .Q1H1M STA Infusion Medical Decision Making Medical Decision Making MDM Narrative: 83-year-old female with a history of atrial fibrillation on Eliquis who presents emergency department for evaluation of feeling off balance. The patient states that she had a fall on 07/07/2023. She fell backwards and struck her head. She also fractured her left distal radius. Patient was seen in urgent care clinic and then referred to Orthopedics for management of her radius fracture. The patient states that since the fall she has been feeling unsteady on her feet and it is gotten progressively worse over the past 2 weeks. She states that whenever she stands she feels off balance in her legs feel weak. She states that she bought a cane 2 days ago and this is not helping her with her ability to walk. She was evaluated today by her PCP and may have been orthostatic by vital signs and was referred to the emergency department for evaluation. Orthostatic vital signs in the emergency department did reveal a 20 point increase in her heart rate but no significant decrease in her blood pressure, she was relatively asymptomatic but did feel off balance with standing-which is a symptom that she has been complaining of since her fall. Differential diagnosis: ?Includes but is not limited to subdural hematoma, subarachnoid bleed, skull fracture, cerebellar stroke, anemia, electrolyte abnormalities Following evaluation was ordered: CBC, CMP, lipase, PT/INR, PTT, magnesium, troponin, occult stool, chest x-ray one view, CT scan of the brain without IV contrast Patient was initially treated with the following: Normal saline x1 L IV Course: 14:57 My interpretation patient's laboratory evaluation as follows: CBC was normal except for low platelet count of a [id number]. CMP was normal. Troponin was below detectable limits. TSH was normal. Lipase was normal. Occult stool was negative. The interface between PACs and expansive down but I was able to review the radiology CT scan reading: The radiologist noted cerebral atrophy with ventriculomegaly ischemic white matter disease with no acute stroke noted. Given this finding of ventriculomegaly, I am concerned that she may have idiopathic intracranial hypertension(IIH)as the cause of her progressive ataxic. Given her inability to walk, I believe the patient should be admitted to rule out cerebellar stroke verses IIH and for Neurology consult. I did discuss the patient's presentation with our covering neurologist, Dr. Avilez and he agreed with the admission. He recommended that the patient get an MRI of the brain and he will consult on the patient. I did discuss the patient's presentation over tiger text with the covering hospitalist, Dr. Gore. Admission/Observation Consideration of admission/observation: Escalation of care including admission/observation considered Consult Healthcare Provider Management of the patient was discussed with: Hospitalist (Dr. Redmond) and Supervisor Quilting (Dr. Avilez) Lab Data MDM Lab Attestation statement: I reviewed the patient's lab results. 09/09/23 12:12 09/09/23 12:12 Labs: Lab Results 09/09/23 Range/Units 12:12 WBC 7.0 (4.8-10.8) X10*3/uL RBC 4.36 (4.20-5.50) X10*6/uL Hgb 13.6 (12.0-16.0) g/dl Hct 40.5 (37.0-47.0) % MCV 92.9 (80.0-98.0) fL MCH 31.2 (27.0-33.0) pg MCHC 33.6 (31.0-35.0) g/dl RDW 12.3 (11.0-16.0) % Plt Count 142 L (160-400) X10*3/uL MPV 10.7 (9.4-12.3) fL Immature Gran % (Auto) 0.3 (0.0-0.4) % Neut % (Auto) 79.0 H (45-73) % Lymph % (Auto) 13.6 L (20-40) % Hernando % (Auto) 6.1 (2-11) % Eos % (Auto) 0.4 (0-4) % Baso % (Auto) 0.6 (0-2) % Lymph # (Auto) 1.0 L (1.2-4.9) X10*3/uL Hernando # (Auto) 0.4 (0.1-1.2) X10*3/uL Eos # (Auto) 0.0 (0.0-0.4) X10*3/uL Baso # (Auto) 0.0 (0.0-0.2) X10*3/uL Abs Immat Gran (auto) 0.02 (0.00-0.03) X10*3/uL Absolute Neuts (auto) 5.6 (2.0-8.3) x10*3/uL Absolute Nucleated RBC 0.000 (0.0-0.012) X10*3/uL Nucleated RBC % (auto) 0.0 (0.0-0.2) /100WBC PT 14.1 H (11.1-13.3) SEC INR 1.2 H (0.9-1.1) APTT 38.1 H (26.0-36.8) SEC Sodium 135 (135-145) mmol/L Potassium 4.3 (3.3-5.1) mmol/L Chloride 100 (96-108) mmol/L Carbon Dioxide 27 (22-29) mmol/L Anion Gap 12 (12-20) BUN 12 (9-16) mg/dL Creatinine 0.69 (0.5-1.4) mg/dL Estim Creat Clear Calc 47.9 Estimated GFR > 60 Random Glucose 102 (60-115) mg/dL Calcium 10.0 (8.4-10.2) mg/dL Magnesium 1.7 (1.6-2.6) mg/dL Total Bilirubin 0.5 (0.0-1.0) mg/dL AST 24 (5-31) U/L ALT 17 (0-31) U/L Alkaline Phosphatase 61 (39-117) U/L Troponin I High Sens < 2.7 (<3.5-17.0) ng/L Total Protein 7.1 (6.5-8.0) g/dL Albumin 4.0 (3.5-5.0) g/dL Lipase 38 (8-78) U/L TSH 1.39 (0.32-4.0) uIU/mL Stool Occult Blood NEGATIVE (NEGATIVE) Independent Interpretation I performed an independent interpretation of an: EKG Interpretation: My interpretation patient's 12 EKG done at 12:10 hours is as follows: Normal sinus rhythm with a rate of 83, normal AK interval, QRS duration QTC interval, inverted T-waves in lead 3 and V1, no ST segment elevation, no ST segment depression, no PACs, no PVCs Radiology Impression Discussion of test interpretation with radiology: I have reviewed the radiologist's reading. Radiologist Impression: My summary of the patient's radiology reading is as follows: Cerebral atrophy with ventriculomegaly, ischemic white matter disease, no acute stroke, fracture intracranial bleed. The link between the PACS system and Expand his down but the nanotechnology engineering technician was able to show me the reading in the PACS system. Independent Historian Clinical information obtained from an independent historian. History obtained from or confirmed by: Other (Daughter) Chronic Conditions Patient?s care impacted by: Other (Paroxysmal atrial fibrillation on Eliquis) Critical Care Time Critical Care Time Critical Care Time: Yes Total Critical Care Time: 35 Attestation: Critical Care: The patient was critically ill with a high probability of imminent or life threatening deterioration. I spent greater than 30 minutes of discontinuous time evaluating the patient,delivering critical care at the bedside, discussing and evaluating pertinent data with consultants. Critical care time does not include time spent performing separately billable procedures or teaching. Total time spent performing critical care was 35 minutes. Discharge Plan Discharge Clinical Impression: Ataxia, Cerebral ventriculomegaly Patient Disposition: Admitted As Inpatient Print Language: Spanish
--- NOTE | 2023-09-09 11:57 | ECG_ITS ---
Test Reason : dizziness Blood Pressure : / mmHG Vent. Rate : 083 BPM Atrial Rate : 083 BPM P-R Int : 144 ms QRS Dur : 070 ms QT Int : 368 ms P-R-T Axes : 045 -24 -02 degrees QTc Int : 432 ms Normal sinus rhythm Possible Left atrial enlargement Borderline ECG No previous ECGs available Referred By: Ramiro Mccurdy Electronically Signed By:SHIRLEY PINO MD
[2023-09-09] MEDS: 0.9 % Sodium Chloride 1,000 ML 999 ML IV (12:17)
[2023-09-09 12:24] LABS: MANUAL DIFF FLAG NO
[2023-09-09 12:25] LABS: OBS Int Ctl Valid YES; OBS1 NEGATIVE (NEGATIVE)
[2023-09-09 12:31] LABS: INTERNATIONAL NORM RATIO 1.2 (0.9-1.1); Prothrombin Time 14.1 SEC (11.1-13.3)
[2023-09-09 12:32] LABS: Basophils Percent Auto 0.6 % (0-2); Eosinophils Percent Auto 0.4 % (0-4); Hematocrit 40.5 % (37.0-47.0); Hemoglobin 13.6 g/dl (12.0-16.0); Imm Gran Abs Auto 0.02 X10*3/uL (0.00-0.03); Imm Gran Pct Auto 0.3 % (0.0-0.4); Lymphocytes Percent Auto 13.6 % (20-40); Mean Corpuscular HGB Conc 33.6 g/dl (31.0-35.0); Mean Corpuscular Hemoglobin 31.2 pg (27.0-33.0); Mean Corpuscular Volume 92.9 fL (80.0-98.0); Mean Platelet Volume 10.7 fL (9.4-12.3); Monocytes Absolute Auto 0.4 X10*3/uL (0.1-1.2); Monocytes Percent Auto 6.1 % (2-11); Neutrophils Absolute Auto 5.6 x10*3/uL (2.0-8.3); Platelet Count 142 X10*3/uL (160-400); Red Blood Count 4.36 X10*6/uL (4.20-5.50); Red Cell Distribution Width 12.3 % (11.0-16.0)
[2023-09-09 12:34] LABS: Partial Thromboplastin Time 38.1 SEC (26.0-36.8)
[2023-09-09 12:46] LABS: Alanine Aminotransferase 17 U/L (0-31); Alkaline Phosphatase 61 U/L (39-117); Anion Gap 12 (12-20); Aspartate Amino Transferase 24 U/L (5-31); Bilirubin Total 0.5 mg/dL (0.0-1.0); Blood Urea Nitrogen 12 mg/dL (9-16); Carbon Dioxide 27 mmol/L (22-29); Chloride 100 mmol/L (96-108); Creatinine Clr Calc Pharmacy 47.9; Estimated Glomerular Filt Rate > 60; Glucose Random 102 mg/dL (60-115); Lipase 38 U/L (8-78); Magnesium 1.7 mg/dL (1.6-2.6); Potassium 4.3 mmol/L (3.3-5.1); Sodium 135 mmol/L (135-145); Total Protein 7.1 g/dL (6.5-8.0)
[2023-09-09 12:53] LABS: Troponin-I High Sensitivity < 2.7 ng/L (<3.5-17.0)
[2023-09-09 13:05] LABS: TSH reflex Free T4 1.39 uIU/mL (0.32-4.0)
--- NOTE | 2023-09-09 16:03 | PHA.MEDREC ---
Addendum entered by Kong Alegria [facility] 09/09/23 16:05: pt was also prescribed sertraline but has not yet started medication. PT would like to hold off until she talks to Original Note: Pharmacy Consult ? Medication Reconciliation Pharmacy has completed the medication reconciliation. Pt also takes vit d but unsure of dose
--- NOTE | 2023-09-09 16:36 | PM.IMHP ---
History of Present Illness Date of Service: 09/09/23 Attending physician on admission: [facility] Chief Complaint: unsteady gait 83 year old female with history of paroxysmal atrial fibrillation s/p cardioversion anticoagulated with eliquis presented to the ED for evaluation of unsteady gait. She reports she had a ?mechanical fall while exercising 2 months ago and did hit her head. She sustained fracture to the L distal radius and has been following outpt with hand surgery. She states since then has had progressively worsening gait ataxia. Over the last 2 weeks had significantly worsened and has required the use of a cane and needs to hold on to something while walking. She has not had any furhter falls. Over the last 3-4 days feels this has further worsened. She also describes vertigo. No focal weakness or paresthesias, facial droop, slurred speech, or confusion. Since arrival, hypertensive to 175/86, vitals otherwise stable. PLT 142. Renal function and lytes WNL. Lipid profile pending. 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 Per neurology, pt will be admitted for further work up of probable posterior cva. Review of Systems Review of Systems: General: No fevers, malaise, unintentional weight loss HEENT: No blurred vision, diplopia. No sore throat, nasal congestion, rhinorrhea, sinus pain, ear pain Cardiovascular: No chest pain, palpitations, or leg edema Respiratory: No shortness of breath, wheezing, cough GI: No abdominal pain, nausea, vomiting, diarrhea, constipation, melena, hematochezia : No dysuria, hematuria, increased urinary frequency, decreased urinary output MSK: No myalgia, back pain Neuro: No headaches, weakness, paresthesias. +unsteady gait, +vertigo Skin: No rashes or lesions [facility] Medical History Atrial fibrillation History of cardioversion Surgical History H/O cardiac radiofrequency ablation Social History Smoked in Last 30 Days: No Use of substances other than those prescribed or required for medical reasons: No Advance Directives: No Advance Directives Information Provided: Yes Do you have a plan to hurt others: No Plan Current occupational status: retired Meds Allergies Allergy/AdvReac Type Severity Reaction Status Date / Time amoxicillin Allergy Intermediate Gastrointestinal Verified 09/09/23 11:54 Upset metoprolol Allergy Intermediate Unresponsiv Verified 09/09/23 11:54 e metronidazole [From Flagyl] Allergy Unknown Verified 09/09/23 11:55 Home Medications ?Medication ?Instructions ?Recorded ?Confirmed ?Last Taken ?Type apixaban 2.5 mg tablet (Eliquis) 2.5 mg PO BID 07/08/23 09/09/23 09/09/23 History Physical Exam Vital Signs and Narrative: Vital Signs: Last Vital Signs Temp 98.1 F 09/09/23 14:57 Pulse 91 09/09/23 16:31 Resp 22 H 09/09/23 14:57 BP 175/86 H 09/09/23 16:31 Pulse Ox 97 09/09/23 14:57 O2 Del Method Room Air 09/09/23 14:57 BMI result Body Mass Index 22.2 Constitutional - Awake and Alert, No apparent distress Eyes - PERRLA, EOMI Cardiovascular - S1S2, RRR, No edema Respiratory - Normal lung expansion, Normal respiratory effort, No respiratory distress, CTA bilaterally Extremities - no calf tenderness bilaterally, no swelling Skin - Warm/Dry. Petechiae ble Neurological - Alert & oriented x3, CN II-XII in tact, 5/5 strength BUE and BLE, +romberg, normal finger to nose and heel to boyer testing Psychological - Appropriate affect Results Labs 09/09/23 12:12 09/09/23 12:12 Labs: Laboratory Results - last 24 hr 09/09/23 12:12 MCV 92.9 MCH 31.2 MCHC 33.6 RDW 12.3 Plt Count 142 L MPV 10.7 Immature Gran % (Auto) 0.3 Neut % (Auto) 79.0 H Lymph % (Auto) 13.6 L [place] % (Auto) 6.1 Eos % (Auto) 0.4 Baso % (Auto) 0.6 Lymph # (Auto) 1.0 L [place] # (Auto) 0.4 Eos # (Auto) 0.0 Baso # (Auto) 0.0 Abs Immat Gran (auto) 0.02 Absolute Neuts (auto) 5.6 Absolute Nucleated RBC 0.000 Nucleated RBC % (auto) 0.0 PT 14.1 H INR 1.2 H APTT 38.1 H Anion Gap 12 Estim Creat Clear Calc 47.9 Estimated GFR > 60 Random Glucose 102 Calcium 10.0 Magnesium 1.7 Total Bilirubin 0.5 AST 24 ALT 17 Alkaline Phosphatase 61 Troponin I High Sens < 2.7 Total Protein 7.1 Albumin 4.0 Lipase 38 TSH 1.39 Stool Occult Blood NEGATIVE Assessment and Plan (1) Cerebral ventriculomegaly: Status: Acute (2) Ataxia: Status: Acute Plan 83 year old female with history of paroxysmal atrial fibrillation s/p cardioversion anticoagulated with eliquis admitted for further management of gait ataxia with concern for posterior cva. 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 -MRI brain ordered -hold on asa given ble petechiae though PLT 142 -lipid panel, atorvastatin 80mg daily -echo -passed swallow eval, cardiac diet -neuro checks, stroke edu -pt/ot -neuro consult -admit to tele #Paroxysmal atrial fibrillation- rate controlled -continue eliquis -not on rate control DVT prophyalxis- eliquis full code pt requires inpt stay at least 2 midnights due to significant gait ataxia with persistent vertigo significantly impairing patient's ability to ambulate safely even with assitive device and will require inpt mri, expert consultation and pt/ot eval with probable placement to str Quality Stroke Does the patient have a stroke diagnosis?: Yes Reason for No Anti-thrombotic by Day Two: Drug treatment not indicated VTE Prior VTE?: No VTE Risk Level:: Medical - moderate - high VTE Device Contraindication: Treatment Not Indicated VTE Drug Contraindication: N/A - Med Ordered
[2023-09-09 17:48] LABS: Cholesterol 187 mg/dL (<200); HDL Cholesterol 68 mg/dL (>40); LDL Cholesterol Calculated 108 mg/dL (<100); Triglycerides 58 mg/dL (<150)
--- NOTE | 2023-09-09 20:04 | MHC.EDTECH ---
This tech took over care of patient at 1900,hourly rounds and vitals completed. Patient was a 1 assist to commode,patient urinated a moderate amount,verenice-care given. call real in reach
--- NOTE | 2023-09-09 20:09 | MHC.EDTECH ---
Patient ate 75% of dinner,belongings list completed and copy placed in chart
[2023-09-09] MEDS: LORazepam 2 MG/ML VIAL 1 MG IVPUSH (20:19)
[2023-09-09] MEDS: Apixaban 2.5 MG TABLET PO (21:54)
--- NOTE | 2023-09-09 23:27 | MHC.EDTECH ---
Hourly rounds and vitals completed,patient is resting comfortably at this time,call real in reach
[2023-09-10] VITALS (12 sets, daily range): BP systolic 141–187; BP diastolic 80–90; PULSE 66–116; RESP 14–18; TEMP 36.4–36.9; O2SAT 96–99
--- NOTE | 2023-09-10 01:35 | MHC.EDTECH ---
Hourly rounds and vitals completed,patient is resting comfortably,call real in reach
--- NOTE | 2023-09-10 03:58 | MHC.EDTECH ---
Hourly rounds and vitals completed,Patient was a minimal assist to commode,urinated a moderate amount ,verenice-care given. Patient was given a can of abdulaziz pito,,call real in reach
--- NOTE | 2023-09-10 05:43 | MHC.EDTECH ---
Hourly rounds and vitals completed,patient is resting comfortably,call real in reach
[2023-09-10 06:16] LABS: MANUAL DIFF FLAG NO
[2023-09-10 06:24] LABS: Basophils Percent Auto 0.8 % (0-2); Eosinophils Absolute Auto 0.1 X10*3/uL (0.0-0.4); Eosinophils Percent Auto 2.6 % (0-4); Hematocrit 39.1 % (37.0-47.0); Hemoglobin 13.2 g/dl (12.0-16.0); Imm Gran Abs Auto 0.02 X10*3/uL (0.00-0.03); Imm Gran Pct Auto 0.4 % (0.0-0.4); Lymphocytes Absolute Auto 1.3 X10*3/uL (1.2-4.9); Mean Corpuscular HGB Conc 33.8 g/dl (31.0-35.0); Mean Corpuscular Hemoglobin 31.4 pg (27.0-33.0); Mean Corpuscular Volume 93.1 fL (80.0-98.0); Mean Platelet Volume 11.1 fL (9.4-12.3); Monocytes Absolute Auto 0.4 X10*3/uL (0.1-1.2); Monocytes Percent Auto 8.3 % (2-11); Neutrophils Percent Auto 60.9 % (45-73); Platelet Count 131 X10*3/uL (160-400); Red Cell Distribution Width 12.4 % (11.0-16.0); White Blood Count 4.9 X10*3/uL (4.8-10.8)
[2023-09-10 06:41] LABS: Anion Gap 12 (12-20); Blood Urea Nitrogen 9 mg/dL (9-16); Calcium 9.7 mg/dL (8.4-10.2); Carbon Dioxide 28 mmol/L (22-29); Chloride 101 mmol/L (96-108); Creatinine Clr Calc Pharmacy 54.2; Estimated Glomerular Filt Rate > 60; Glucose Random 84 mg/dL (60-115); Potassium 3.7 mmol/L (3.3-5.1); Sodium 137 mmol/L (135-145)
--- NOTE | 2023-09-10 07:00 | CA_ITS ---
Transthoracic Echocardiogram Patient (Last, First, Middle): Ya Turner, Gender: Female Date of : 1940 Age: 83 Procedure Date: 09/10/2023 Procedure Type: Transthoracic Echocardiogram Location: ER Height: 157.48 cm Weight: 54.89 kg BSA: 1.54 m2 Heart Rate: bpm BP: 148 / 82 mmHg Promotions Team Leader: TO Referring MD: Marilyn THOMAS Symptoms: cva Study Quality: Technically Difficult Conclusions: - Normal left ventricular size, thickness, systolic function, and wall motion. - E/E prime ratio is between 8 and 15 consistent with indeterminate filling pressures. - Normal right ventricular cavity size and systolic function. - Significantly elevated right atrial pressure. Findings Procedure Information Contrast agent, definity, is being given per protocol without apparent complications. Left Ventricle Normal left ventricular size, thickness, systolic function, and wall motion. The visually estimated ejection fraction is between 55-60%. Abnormal diastolic function is noted. Spectral Doppler is indicative of a pseudonormal filling pattern. E/E prime ratio is between 8 and 15 consistent with indeterminate filling pressures. Right Ventricle Normal right ventricular cavity size and systolic function. Atria The left atrium is normal in size. Aortic Valve There is a normal trileaflet aortic valve. There is no aortic valve stenosis. There is no aortic valve regurgitation. Mitral Valve The mitral valve appears normal. There is trace mitral valve regurgitation. There is no mitral valve stenosis. Pulmonic Valve The pulmonic valve is likely normal. Tricuspid Valve Normal tricuspid valve structure. There is trace tricuspid valve regurgitation. Significantly elevated right atrial pressure. There is no evidence of pulmonary hypertension. Great Vessels All visible segments of the aorta are normal in size. Venous The inferior vena cava is dilated and collapses less than 50% with inspiration. Pericardium/Pleural There is no evidence of pericardial effusion. Prior Study Comparison No prior study available for comparison. Measurements 2D Linear Measurements IVSd: 0.90 0.6-0.9/0.6-1.0 cm LVIDd: 4.21 3.9-5.3/4.2-5.9 cm LVIDd Index: 2.73 2.4-3.2/2.2-3.1 cm/m2 LVIDs: 2.69 2.0-3.6 cm LVPWd: 0.75 0.7-1.1 cm LA Diam: 3.40 2.7-3.8/3.0-4.0 cm LAIDs Index: 2.21 1.5-2.3 cm/m2 LV Mass: 131.14 67-162/88-224 g LV Mass Index: 85.16 43-95/49-115 g/m2 LVOT Diam: 2.00 3.0+(-)1.3 cm 2D Systolic Function EF 4C: 56.00 >55% EF 2C: 57.60 >55% EF BiP: 57.30 >55% Mitral Valve MV Pk E: 0.65 MV PK A: 0.60 MV Decel Time: 183.00 E/A: 1.10 E'Lateral: 6.53 E'Medial: 5.55 E/E' Med: 11.70 E/E' Lat: 10.00 PHT: 54.00 MVA PHT: 4.07 Decel Davis: 3.56 Aortic Valve AoV Pk Vince: 1.17 AoV Mn Vince: 0.78 AoV VTI: 0.23 AoV Pk Grad: 5.00 Aov Mn Grad: 3.00 ALIA Cont.VTI: 1.93 LVOT LVOT Pk Vince: 0.71 LVOT Mn Vince: 0.46 LVOT VTI: 0.14 LVOT Pk Grad: 2.00 LVOT Mn Grad: 1.00 LVOT Diam: 2.00 LVOT Area: 3.14 Diastolic Function MV Pk E: 0.65 MV Pk A: 0.60 E/A: 1.10 E'Medial: 5.55 E/E' Med: 11.70 E' Laterial: 6.53 E/E' Lat: 10.00 Tricuspid Valve TR Pk Vince: 1.98 TR Pk Grad: 16.00 RA Press: 8.00 RVSP: 24.00 Great Vessels Aorta Sinus of Valsalva: 3.24 2.0-3.5 cm Ao Asc: 3.30 2.1-3.4 cm Updated in Other Vendor System with Status of Final Fermin Weems MD electronically signed on 09/11/2023 12:12:21 PM with status of Final
[2023-09-10] MEDS: Acetaminophen 325 MG TABLET 650 MG PO (07:32)
[2023-09-10] MEDS: 0.9 % Sodium Chloride Flush 3 ML SYRINGE IVFLUSH ×2 (07:37→16:24)
--- NOTE | 2023-09-10 08:30 | PC.NURSE ---
ASSUMED CARE OF THIS PT THIS AM, SHE IS ENDORSING A NECK AND HEADACHE, FEELS LIKE A MUSCULAR TENSION THAT SHE DOES EXPERIENCE AT HOME. GIVEN TYLENOL AND A HOT PACK FOR PAIN RELIEF. PT IS A&OX4 AT THIS TIME, SPEAKING IN CLEAR FULL SENTENCES, WITH NO UNILATERAL WEAKNESS. EATING BREAKFAST & TAKING PO MEDS WITH NO ISSUE. PHYSICAL THERAPY CURRENTLY AT BEDSIDE FOR ASSESSMENT WITH WALKER.
--- NOTE | 2023-09-10 08:37 | PC.NURSE ---
SMALL PETECHIAE NOTED IN HER LOWER EXTREMITIES, SHE STATES THESE DO APPEAR INTERMITTENTLY. NO WARMTH, REDNESS.
[2023-09-10] MEDS: Atorvastatin Calcium 80 MG TABLET PO (08:51)
[2023-09-10] MEDS: Apixaban 2.5 MG TABLET PO ×2 (08:51→20:50)
--- NOTE | 2023-09-10 09:29 | P.PNIM_ITS ---
Subjective Subjective Date of Service: 09/10/23 Interval History: f/u on unsteady gait that has been ongoing for months and worse, no acute stroke on CT or MRI essentially unchanged. Physical Exam 2 Vital Signs: Vital Signs: Last Vital Signs Temp 97.5 F 09/10/23 08:28 Pulse 116 H 09/10/23 08:50 Resp 17 09/10/23 08:28 BP 142/81 H 09/10/23 08:28 Pulse Ox 98 09/10/23 08:28 O2 Del Method Room Air 09/10/23 08:28 BMI result Body Mass Index 22.2 Constitutional - Awake and Alert, No apparent distress Eyes - PERRLA, EOMI Cardiovascular - S1S2, RRR, No edema Respiratory - Normal lung expansion, Normal respiratory effort, No respiratory distress, CTA bilaterally Extremities - no calf tenderness bilaterally, no swelling Skin - Warm/Dry. Petechiae ble Neurological - Alert & oriented x3, CN II-XII in tact, 5/5 strength BUE and BLE, +romberg, Psychological - Appropriate affect Objective Data Active Medications Acetaminophen (Acetaminophen 325 Mg Tablet) 650 mg PO Q6H PRN PRN Reason: Pain, Mild (Pain Scale 1-3) Last Admin: 09/10/23 07:32 Dose: 650 mg Documented By: NELY Apixaban (Apixaban 2.5 Mg Tablet) 2.5 mg PO BID [facility] Last Admin: 09/10/23 08:51 Dose: 2.5 mg Documented By: NELY Atorvastatin Calcium (Atorvastatin Calcium 80 Mg Tablet) 80 mg PO DAILY [facility] Last Admin: 09/10/23 08:51 Dose: 80 mg Documented By: NELY Magnesium Hydroxide (Milk Of Magnesia 30 Ml Oral.Susp) 30 ml PO DAILY PRN PRN Reason: Constipation Ondansetron HCl (Ondansetron Hcl 4 Mg/2 Ml Vial) 4 mg IVPUSH Q8H PRN PRN Reason: Nausea and Vomiting Sodium Chloride (0.9 % Sodium Chloride Flush 3 Ml Syringe) 3 ml IVFLUSH QSHIFT [facility] Last Admin: 09/10/23 07:37 Dose: 3 ml Documented By: NELY Labs 09/10/23 04:08 09/10/23 04:08 Labs: Laboratory Results - last 24 hr 09/09/23 09/10/23 12:12 04:08 MCV 92.9 93.1 MCH 31.2 31.4 MCHC 33.6 33.8 RDW 12.3 12.4 Plt Count 142 L 131 L MPV 10.7 11.1 Immature Gran % (Auto) 0.3 0.4 Neut % (Auto) 79.0 H 60.9 Lymph % (Auto) 13.6 L 27.0 [place] % (Auto) 6.1 8.3 Eos % (Auto) 0.4 2.6 Baso % (Auto) 0.6 0.8 Lymph # (Auto) 1.0 L 1.3 [place] # (Auto) 0.4 0.4 Eos # (Auto) 0.0 0.1 Baso # (Auto) 0.0 0.0 Abs Immat Gran (auto) 0.02 0.02 Absolute Neuts (auto) 5.6 3.0 Absolute Nucleated RBC 0.000 0.000 Nucleated RBC % (auto) 0.0 0.0 PT 14.1 H INR 1.2 H APTT 38.1 H Anion Gap 12 12 Estim Creat Clear Calc 47.9 54.2 Estimated GFR > 60 > 60 Random Glucose 102 84 Calcium 10.0 9.7 Magnesium 1.7 Total Bilirubin 0.5 AST 24 ALT 17 Alkaline Phosphatase 61 Troponin I High Sens < 2.7 Total Protein 7.1 Albumin 4.0 Triglycerides 58 Cholesterol 187 LDL Cholesterol, Calc 108 H HDL Cholesterol 68 Lipase 38 TSH 1.39 Stool Occult Blood NEGATIVE Assessment and Plan (1) Ataxia: Status: Acute Plan 83 year old female with history of paroxysmal atrial fibrillation s/p cardioversion anticoagulated with eliquis admitted for further management of gait ataxia with concern for posterior cva. #Gait ataxia/vertigo--No CT by MRI or CT -Neuro consult -PT/OT recommend STR #Paroxysmal atrial fibrillation- rate uncontrolled, -add cardizem -continue eliquis -not on rate control DVT prophyalxis- eliquis full code need for inpt: work up for unsteady gait Quality Stroke Does the patient have a stroke diagnosis?: Yes Reason for No Anti-thrombotic by Day Two: Drug treatment not indicated VTE Prior VTE?: No VTE Risk Level:: Medical - moderate - high VTE Device Contraindication: Treatment Not Indicated VTE Drug Contraindication: N/A - Med Ordered
--- NOTE | 2023-09-10 10:20 | MHC.CM.PN ---
PT REPORTS SHE LIVES WITH HER AND IS INDEPENDENT WITH CARE SHE HAD NO DME OR SERVICES TRAVEL SERVICE CONSULTANT PT SAYS SHE HAS A HCP AT HOME PCP: [facility] IMM DELIVERED DCP: PT RECOMMENDING ACUTE REHAB REFERRALS OUT
--- NOTE | 2023-09-10 10:31 | P.CNNE_ITS ---
History of Present Illness Data of Consult Service Date: 09/10/23 Primary Care Provider: Sarah Smith NP HPI Reason for consult: Difficulty walking and falling 83 years old woman who came to hospital stating that she has been losing balance and falling. There was no history of any recent cold or flu-like illness diarrhea or constipation or loss of bowel bladder control. She did not complain of significant back pain but was complaining of neck pain. An MRI of brain and CT scan of brain was done that did not reveal any acute problem. Review of Systems 2 Review of Systems: Right-sided neck pain PMFSH Past Medical History Medical History Atrial fibrillation History of cardioversion Surgical History Surgical History H/O cardiac radiofrequency ablation Social History Social History Smoked in Last 30 Days: No Use of substances other than those prescribed or required for medical reasons: No Advance Directives: No Advance Directives Information Provided: Yes Do you have a plan to hurt others: No Plan service: No Current occupational status: retired Meds Allergies Allergy/AdvReac Type Severity Reaction Status Date / Time amoxicillin Allergy Intermediate Gastrointestinal Verified 09/09/23 11:54 Upset metoprolol Allergy Intermediate Unresponsiv Verified 09/09/23 11:54 e metronidazole [From Flagyl] Allergy Unknown Verified 09/09/23 11:55 Active Medications: Current Medications Acetaminophen (Acetaminophen 325 Mg Tablet) 650 mg PO Q6H PRN PRN Reason: Pain, Mild (Pain Scale 1-3) Last Admin: 09/10/23 07:32 Dose: 650 mg Apixaban (Apixaban 2.5 Mg Tablet) 2.5 mg PO BID [facility] Last Admin: 09/10/23 08:51 Dose: 2.5 mg Atorvastatin Calcium (Atorvastatin Calcium 80 Mg Tablet) 80 mg PO DAILY [facility] Last Admin: 09/10/23 08:51 Dose: 80 mg Diltiazem HCl (Diltiazem Hcl 30 Mg Tablet) 30 mg PO QID [facility]; Protocol Magnesium Hydroxide (Milk Of Magnesia 30 Ml Oral.Susp) 30 ml PO DAILY PRN PRN Reason: Constipation Ondansetron HCl (Ondansetron Hcl 4 Mg/2 Ml Vial) 4 mg IVPUSH Q8H PRN PRN Reason: Nausea and Vomiting Sodium Chloride (0.9 % Sodium Chloride Flush 3 Ml Syringe) 3 ml IVFLUSH QSHIFT [facility] Last Admin: 09/10/23 07:37 Dose: 3 ml Home Medications ?Medication ?Instructions ?Recorded ?Confirmed ?Last Taken ?Type apixaban 2.5 mg tablet (Eliquis) 2.5 mg PO BID 07/08/23 09/09/23 09/09/23 History Physical Exam 2 Vital Signs: Vital Signs: Last Vital Signs Temp 97.5 F 09/10/23 08:28 Pulse 116 H 09/10/23 08:50 Resp 17 09/10/23 08:28 BP 142/81 H 09/10/23 08:28 Pulse Ox 98 09/10/23 08:28 O2 Del Method Room Air 09/10/23 08:28 BMI result Body Mass Index 22.2 Neuro: Other: She is alert and awake with normal spontaneity of speech fluency comprehension and affect. Face is symmetrical. Visual portillo are full. There is no pronator drift. Deep tendon reflexes in legs are on brisker side with equivocal plantars. She is able to lift both legs up against gravity. Results Labs 09/10/23 04:08 09/10/23 04:08 Labs: Short CBC 09/09/23 09/10/23 Range/Units 12:12 04:08 WBC 7.0 4.9 (4.8-10.8) X10*3/uL Hgb 13.6 13.2 (12.0-16.0) g/dl Hct 40.5 39.1 (37.0-47.0) % Plt Count 142 L 131 L (160-400) X10*3/uL BMP 09/09/23 09/10/23 12:12 04:08 Sodium 135 137 Potassium 4.3 3.7 Chloride 100 101 Carbon Dioxide 27 28 BUN 12 9 Creatinine 0.69 0.61 Calcium 10.0 9.7 Liver Function 09/09/23 Range/Units 12:12 Total Bilirubin 0.5 (0.0-1.0) mg/dL AST 24 (5-31) U/L ALT 17 (0-31) U/L Alkaline Phosphatase 61 (39-117) U/L Albumin 4.0 (3.5-5.0) g/dL Noncontrast MRI of brain did not reveal any acute lesion. [id number] atrophy and mild microvascular ischemic changes were noted. Carotid ultrasound did not reveal any significant problem. Assessment and Plan (1) Ataxia: Status: Acute 83 years old woman with loss of balance and falling of unknown etiology. Exam reveals relative hyper reflexia of legs. MRI of brain did not reveal any acute lesion. My recommendation is to obtain MRI of cervical spine to rule out cervical spondylitic disease. Procedures Date of Service Date of Service: 09/10/23
--- NOTE | 2023-09-10 11:02 | PC.NURSE ---
HOSPITALIST CONTACTED RE: MOJGAN HA, PT'S RATE HAS BEEN CONTROLLED FOR ME IN 70S-80S. HE STATES RATE WAS 115S WHEN HE SPOKE WITH HER THIS AM. ORDERS RECEIVED TO HOLD DILCIA HELD FOR NOW FOR RATE <105.
--- NOTE | 2023-09-10 17:41 | PC.NURSE ---
PT WAS AMBULATED TODAY WITH MINIMAL STAFF ASSISTANCE, AMBULATING WITH WALKER. OBTAINED HOSPITAL BED FOR SECOND NIGHT STAYING HERE.
--- NOTE | 2023-09-10 19:52 | PC.NURSE ---
pt comes in with unsteady gait /ataxia that has been increasingly getting worse since fx of distal radius 2 month ago. Pt now ambulates with cane. Pt also reporting mild vertigo. PMH: aFIB on eliquis. CT : cerebral atrophy with idiopathic intercranial HTN, Admit for possible posterior CVA. pT HAS ble petechia - holding ASA at this time. PLT 142/131. Pt has echo ordered, cardiac diet, neuro consult . PT/OT with probable placement to snf. on tele *in hospital bed*
[2023-09-11] VITALS (12 sets, daily range): BP systolic 108–178; BP diastolic 54–96; PULSE 53–98; RESP 14–20; TEMP 36.1–36.7; O2SAT 96–97; BMI 20.6
[2023-09-11] MEDS: dilTIAZem HCL 30 MG TABLET PO ×3 (08:42→17:21)
[2023-09-11] MEDS: Atorvastatin Calcium 80 MG TABLET PO (08:47)
[2023-09-11] MEDS: Apixaban 2.5 MG TABLET PO ×2 (08:47→22:24)
[2023-09-11] MEDS: 0.9 % Sodium Chloride Flush 3 ML SYRINGE IVFLUSH ×3 (08:47→22:25)
--- NOTE | 2023-09-11 10:23 | HO.PM.IMPN ---
Subjective Subjective Date of Service: 09/11/23 Interval History: f/u on unsteady gait that has been ongoing for months and worse, no acute stroke on CT or MRI her condition is stable with no new changes, roddy be getting MR of cervical spine Physical Exam Vital Signs: Vital Signs: Last Vital Signs Temp 97.6 F 09/11/23 09:47 Pulse 87 09/11/23 09:47 Resp 20 09/11/23 09:47 BP 152/83 H 09/11/23 09:47 Pulse Ox 96 09/11/23 09:47 O2 Del Method Room Air 09/11/23 09:47 BMI result Body Mass Index 20.6 General: AO X 3, no acute distress Resp: CTA bilateral CVS: S1,S2,RRR GI: +BS, NT, no distention Skin: No rash Neuro: motor grossly intact Psych: appropriate affect Objective Data Active Medications Acetaminophen (Acetaminophen 325 Mg Tablet) 650 mg PO Q6H PRN PRN Reason: Pain, Mild (Pain Scale 1-3) Last Admin: 09/10/23 07:32 Dose: 650 mg Documented By: NELY Apixaban (Apixaban 2.5 Mg Tablet) 2.5 mg PO BID [facility] Last Admin: 09/11/23 08:47 Dose: 2.5 mg Documented By: GLORIA Atorvastatin Calcium (Atorvastatin Calcium 80 Mg Tablet) 80 mg PO DAILY [facility] Last Admin: 09/11/23 08:47 Dose: 80 mg Documented By: GLORIA Diltiazem HCl (Diltiazem Hcl 30 Mg Tablet) 30 mg PO QID [facility]; Protocol Last Admin: 09/11/23 08:42 Dose: 30 mg Documented By: GLORIA Magnesium Hydroxide (Milk Of Magnesia 30 Ml Oral.Susp) 30 ml PO DAILY PRN PRN Reason: Constipation Ondansetron HCl (Ondansetron Hcl 4 Mg/2 Ml Vial) 4 mg IVPUSH Q8H PRN PRN Reason: Nausea and Vomiting Sodium Chloride (0.9 % Sodium Chloride Flush 3 Ml Syringe) [facility] Last Admin: 09/11/23 08:47 Dose: 3 ml Documented By: GLORIA Labs 09/10/23 04:08 09/10/23 04:08 Assessment and Plan (1) Ataxia: Status: Acute Plan 83 year old female with history of paroxysmal atrial fibrillation s/p cardioversion anticoagulated with eliquis admitted for further management of gait ataxia with concern for posterior cva. #Gait ataxia/vertigo--No CT by MRI or CT -Neuro consult -PT/OT recommend STR #Paroxysmal atrial fibrillation- rate uncontrolled, -add cardizem -continue eliquis -not on rate control DVT prophyalxis- eliquis full code need for inpt: work up for unsteady gait Quality Stroke Does the patient have a stroke diagnosis?: Yes Reason for No Anti-thrombotic by Day Two: Drug treatment not indicated VTE Prior VTE?: No VTE Risk Level:: Medical - moderate - high VTE Device Contraindication: Treatment Not Indicated VTE Drug Contraindication: N/A - Med Ordered
--- NOTE | 2023-09-11 12:47 | MHC.CM.PN ---
EMR reviewed and per MD rounds, pt may be medically cleared pending cervical spine MRI, plan will be to discharge to acute rehab. [facility] will review once C spine MRI results are available.
[2023-09-11] MEDS: LORazepam 2 MG/ML VIAL 1 MG IVPUSH (13:52)
[2023-09-12] VITALS (7 sets, daily range): BP systolic 111–144; BP diastolic 55–80; PULSE 55–88; RESP 16–18; TEMP 36.1–36.9; O2SAT 95–98
--- NOTE | 2023-09-12 00:33 | PM.EVENT ---
Event Note Date of Service: 09/12/23 Event Note: Was informed by Radiologist about patient's cervical MRI. Severe spinal stenosis with severe foraminal narrowing. No cord signal abnormality. Likely chronic degenerative changes as per radiologist Time Spent With Patient Time: Total time managing care of this patient today ____ minutes.
--- NOTE | 2023-09-12 05:32 | PC.NURSE ---
Pt's HR 53, ERIKA Cardizem not given to pt due to decreased HR. MD Barron made aware and okay to hold medication. Will continue to monitor.
[2023-09-12] MEDS: dilTIAZem HCL 30 MG TABLET PO (08:42)
[2023-09-12] MEDS: Atorvastatin Calcium 80 MG TABLET PO (08:42)
[2023-09-12] MEDS: 0.9 % Sodium Chloride Flush 3 ML SYRINGE IVFLUSH ×3 (08:43→19:51)
[2023-09-12] MEDS: Apixaban 2.5 MG TABLET PO ×2 (08:43→19:50)
--- NOTE | 2023-09-12 08:43 | P.DS_ITS ---
DS: Providers Provider Date of Service: 09/16/23 Date of admission: 09/09/23 16:30 Primary care physician: Sarah Smith NP Consults: 09/09/23 15:02 Consult to Neurology Routine Consulting Provider: Neurology Karly pond [facility] Reason for consultation: Progressive ataxia x2 months, CT with cerebral atrophy and ventriculomegaly Has provider been notified: Yes 09/09/23 16:31 Consult to Neurology Routine Consulting Provider: Neurology Karly pond [facility] Reason for consultation: ?posterior cva, gait ataxia DS: Diagnosis Discharge Diagnosis (1) Ataxia: Status: Acute DS: Summary Hospital Course Hospital Course: admission hpi Chief Complaint: unsteady gait 83 year old female with history of paroxysmal atrial fibrillation s/p cardioversion anticoagulated with eliquis presented to the ED for evaluation of unsteady gait. She reports she had a ?mechanical fall while exercising 2 months ago and did hit her head. She sustained fracture to the L distal radius and has been following outpt with hand surgery. She states since then has had progressively worsening gait ataxia. Over the last 2 weeks had significantly worsened and has required the use of a cane and needs to hold on to something while walking. She has not had any furhter falls. Over the last 3-4 days feels this has further worsened. She also describes vertigo. No focal weakness or paresthesias, facial droop, slurred speech, or confusion. Since arrival, hypertensive to 175/86, vitals otherwise stable. PLT 142. Renal function and lytes WNL. Lipid profile pending. 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 Per neurology, pt will be admitted for further work up of probable posterior cva. Hospital course:Patient was admitted and stroke ruled out with CT of the head as well as MRI of the brain. a neurologist recommended cervical spine MRI wheich shows 1. At C5-C6, there is trace retrolisthesis and multifactorial degenerative changes resulting in severe spinal canal stenosis with mild cord flattening and suspected severe right and moderate left neural foraminal narrowing. No definite cord signal abnormality within the limitations of motion. 2. At C6-C7, there is mild spinal canal stenosis and suspected severe left and mild right neural foraminal narrowing. 3. At C4-C5, there is severe right neural foraminal narrowing These are likely chronic and need no acute intervention but is being refer to outpatient neurosurgery evaluation (office will call her), in the meantime Physical therapy is recommending short term rehab which she is agreable to. Her symptoms remains stable, she ambulates independently with a walker Time Attestation Discharge Coordination Time (in mins): 35 Quality: Safe Use of Opioids Does Pt have an Active Cancer Diagnosis on the Problem List?: No Quality: Stroke Does the patient have a stroke diagnosis?: No Physical Exam Vital Signs: Vital Signs: Last Vital Signs Temp 97.2 F 09/12/23 07:52 Pulse 80 09/12/23 07:52 Resp 18 09/12/23 07:52 BP 140/68 H 09/12/23 07:52 Pulse Ox 95 09/12/23 07:52 O2 Del Method Room Air 09/12/23 07:52 BMI result Body Mass Index 20.6 Discharge Plan Discharge Anticipated Discharge Date/Time: 09/16/23 09:27 Patient Disposition: Xfer SNF Discharge Diagnosis: Ataxia, Cervical spondylo myelopathy Referrals: Cyndee Andujar [Outside] - 1 Week (SHORT TERM REHAB) Sarah Smith NP [Primary Care Provider] - 1 Week Discharge Medications: Continued Eliquis 2.5 mg tablet 2.5 mg PO BID Discharge Orders: Discharge Order (Routine); Ordered 09/16/23 Ordered By: Mustapha Armas Diet: Advance to usual diet Activity on Discharge: As tolerated Stand Alone Forms: Patient Portal Discharge page Print Language: Greenlandic Care Plan Goals: improvement in her gait, and return to her baseline funtioning status Health Concerns: unsteady gait Plan of Treatment: to short term rehab to follow up with Neurosugery team Assessment: see above
--- NOTE | 2023-09-12 08:48 | MHC.CM.PN ---
Addendum entered by Stella Moraes 09/12/23 12:43: [facility] WILL REVIEW PTS REFERRAL WITH THEIR MD ON THURSDAY [facility] OF [facility] AND [facility] HAVE CLINICALLY ACCEPTED PT INSURANCE AUTH WILL BE UNAVAILABLE PRIOR TO THURSDAY DUE TO THE LONG WEEKEND MARTINE ALSO SPOKE TO PTS DAUGHTER, SCOUT [phone] AND PROVIDED UPDATES SHE WOULD LIKE AN UPDATE ONCE DISPOSITION IS IN PLACE Original Note: MARTINE MET WITH PT TO DISCUSS DC PLAN SHE UNDERSTANDS ACUTE REHAB WAS RECOMMENDED BY PHYSICAL THERAPY AND STATES THIS WOULD BE HER PREFERENCE IF POSSIBLE UPDATES SENT TO [facility], AWAITING RESPONSE JAKE AND JANNA HAVE ALREADY DECLINED
--- NOTE | 2023-09-12 08:54 | HO.PM.IMPN ---
Subjective Subjective Date of Service: 09/12/23 Interval History: no new changes, gait not worse Physical Exam Vital Signs: Vital Signs: Last Vital Signs Temp 97.2 F 09/12/23 07:52 Pulse 80 09/12/23 07:52 Resp 18 09/12/23 07:52 BP 140/68 H 09/12/23 07:52 Pulse Ox 95 09/12/23 07:52 O2 Del Method Room Air 09/12/23 07:52 BMI result Body Mass Index 20.6 General: AO X 3, no acute distress Resp: CTA bilateral CVS: S1,S2,RRR GI: +BS, NT, no distention Skin: No rash Neuro: motor grossly intact Psych: appropriate affect Objective Data Active Medications Acetaminophen (Acetaminophen 325 Mg Tablet) 650 mg PO Q6H PRN PRN Reason: Pain, Mild (Pain Scale 1-3) Last Admin: 09/10/23 07:32 Dose: 650 mg Documented By: NELY Apixaban (Apixaban 2.5 Mg Tablet) 2.5 mg PO BID [facility] Last Admin: 09/12/23 08:43 Dose: 2.5 mg Documented By: JUVENCIO Atorvastatin Calcium (Atorvastatin Calcium 80 Mg Tablet) 80 mg PO DAILY [facility] Last Admin: 09/12/23 08:42 Dose: 80 mg Documented By: JUVENCIO Magnesium Hydroxide (Milk Of Magnesia 30 Ml Oral.Susp) 30 ml PO DAILY PRN PRN Reason: Constipation Ondansetron HCl (Ondansetron Hcl 4 Mg/2 Ml Vial) 4 mg IVPUSH Q8H PRN PRN Reason: Nausea and Vomiting Sodium Chloride (0.9 % Sodium Chloride Flush 3 Ml Syringe) 3 ml IVFLUSH QSHIFT [facility] Last Admin: 09/12/23 08:43 Dose: 3 ml Documented By: JUVENCIO Labs 09/10/23 04:08 09/10/23 04:08 Assessment and Plan (1) Ataxia: Status: Acute Plan 83 year old female with history of paroxysmal atrial fibrillation s/p cardioversion anticoagulated with eliquis admitted for further management of gait ataxia with concern for posterior cva. #Gait ataxia/vertigo--No stroke by MRI or CT -Neuro consult recommends cervical spine mri which show 1. At C5-C6, there is trace retrolisthesis and multifactorial degenerative changes resulting in severe spinal canal stenosis with mild cord flattening and suspected severe right and moderate left neural foraminal narrowing. No definite cord signal abnormality within the limitations of motion. 2. At C6-C7, there is mild spinal canal stenosis and suspected severe left and mild right neural foraminal narrowing. 3. At C4-C5, there is severe right neural foraminal narrowing These appear to be chronic changes, will refer to neuroSurg on outpatient basis #Paroxysmal atrial fibrillation- rate uncontrolled, -ratecontrolled, stop cardizem d/t episodes of lo HR -continue eliquis DVT prophyalxis- eliquis full code need for inpt: work up for unsteady gait to STR when bed available Quality Stroke Does the patient have a stroke diagnosis?: No Reason for No Anti-thrombotic by Day Two: Drug treatment not indicated VTE Prior VTE?: No VTE Risk Level:: Medical - moderate - high VTE Device Contraindication: Treatment Not Indicated VTE Drug Contraindication: N/A - Med Ordered
[2023-09-13 01:55] VITALS: BP 145/69; PULSE 78; RESP 18; TEMP 36.2; O2SAT 97
[2023-09-13 07:24] VITALS: BP 135/81; PULSE 92; RESP 17; TEMP 36.7; O2SAT 97
[2023-09-13] MEDS: Apixaban 2.5 MG TABLET PO ×2 (08:36→20:08)
[2023-09-13] MEDS: 0.9 % Sodium Chloride Flush 3 ML SYRINGE IVFLUSH ×3 (08:36→20:08)
--- NOTE | 2023-09-13 08:42 | HO.PM.IMPN ---
Subjective Subjective Date of Service: 09/13/23 Interval History: no new changes, gait not worse awaiting short term rehab pending insurance authorization Physical Exam Vital Signs: Vital Signs: Last Vital Signs Temp 98.1 F 09/13/23 07:24 Pulse 92 09/13/23 07:24 Resp 17 09/13/23 07:24 BP 135/81 09/13/23 07:24 Pulse Ox 97 09/13/23 07:24 O2 Del Method Room Air 09/13/23 07:24 BMI result Body Mass Index 20.6 General: AO X 3, no acute distress Resp: CTA bilateral CVS: S1,S2,RRR GI: +BS, NT, no distention Skin: No rash Neuro: motor grossly intact Psych: appropriate affect Neuro: Other: She is alert and awake with normal spontaneity of speech fluency comprehension and affect. Face is symmetrical. Visual portillo are full. There is no pronator drift. Deep tendon reflexes in legs are on brisker side with equivocal plantars. She is able to lift both legs up against gravity. Objective Data Active Medications Acetaminophen (Acetaminophen 325 Mg Tablet) 650 mg PO Q6H PRN PRN Reason: Pain, Mild (Pain Scale 1-3) Last Admin: 09/10/23 07:32 Dose: 650 mg Documented By: NELY Apixaban (Apixaban 2.5 Mg Tablet) 2.5 mg PO BID [facility] Last Admin: 09/13/23 08:36 Dose: 2.5 mg Documented By: RUBEN Atorvastatin Calcium (Atorvastatin Calcium 80 Mg Tablet) 80 mg PO DAILY [facility] Last Admin: 09/13/23 08:36 Dose: Not Given Documented By: RUBEN Non-Admin Reason: Patient Refused Magnesium Hydroxide (Milk Of Magnesia 30 Ml Oral.Susp) 30 ml PO DAILY PRN PRN Reason: Constipation Ondansetron HCl (Ondansetron Hcl 4 Mg/2 Ml Vial) 4 mg IVPUSH Q8H PRN PRN Reason: Nausea and Vomiting Sodium Chloride (0.9 % Sodium Chloride Flush 3 Ml Syringe) 3 ml IVFLUSH QSHIFT [facility] Last Admin: 09/13/23 08:36 Dose: 3 ml Documented By: RUBEN Labs 09/10/23 04:08 09/10/23 04:08 Assessment and Plan (1) Ataxia: Status: Acute Plan 83 year old female with history of paroxysmal atrial fibrillation s/p cardioversion anticoagulated with eliquis admitted for further management of gait ataxia with concern for posterior cva. #Gait ataxia/vertigo--No stroke by MRI or CT -Neuro consult recommends cervical spine mri which show 1. At C5-C6, there is trace retrolisthesis and multifactorial degenerative changes resulting in severe spinal canal stenosis with mild cord flattening and suspected severe right and moderate left neural foraminal narrowing. No definite cord signal abnormality within the limitations of motion. 2. At C6-C7, there is mild spinal canal stenosis and suspected severe left and mild right neural foraminal narrowing. 3. At C4-C5, there is severe right neural foraminal narrowing These appear to be chronic changes, will refer to neuroSurg on outpatient basis #Paroxysmal atrial fibrillation- rate uncontrolled, -continue eliquis DVT prophyalxis- eliquis full code need for inpt: work up for unsteady gait to STR when bed available Quality Stroke Does the patient have a stroke diagnosis?: No Reason for No Anti-thrombotic by Day Two: Drug treatment not indicated VTE Prior VTE?: No VTE Risk Level:: Medical - moderate - high VTE Device Contraindication: Treatment Not Indicated VTE Drug Contraindication: N/A - Med Ordered
[2023-09-13 12:00] VITALS: BP 133/67; PULSE 68; RESP 16; TEMP 36.6; O2SAT 97
[2023-09-13 15:45] VITALS: BP 131/70; PULSE 103; RESP 17; TEMP 36.5; O2SAT 97
[2023-09-13 19:11] VITALS: BP 139/87; PULSE 99; RESP 18; TEMP 36.2; O2SAT 97
[2023-09-14] VITALS (8 sets, daily range): BP systolic 89–161; BP diastolic 54–87; PULSE 77–102; RESP 16–18; TEMP 36.1–36.7; O2SAT 95–98
[2023-09-14] MEDS: 0.9 % Sodium Chloride Flush 3 ML SYRINGE IVFLUSH ×2 (07:24→15:17)
--- NOTE | 2023-09-14 07:31 | PC.NURSE ---
pts BP manually 89/54 P 102 sitting in recliner with no complaints of lightheadedness or dizziness, states she feels off but unable to elaborate what she means. Dr Armas made aware. Rechecked BP and pulse. BP 114/68 P 97. MD aware.
[2023-09-14] MEDS: Apixaban 2.5 MG TABLET PO ×2 (08:26→18:57)
--- NOTE | 2023-09-14 10:13 | P.PNIM_ITS ---
Subjective Subjective Date of Service: 09/14/23 Interval History: no new changes, gait not worse awaiting short term rehab pending insurance authorization Physical Exam 2 Vital Signs: Vital Signs: Last Vital Signs Temp 98.1 F 09/14/23 07:10 Pulse 97 09/14/23 07:31 Resp 17 09/14/23 07:31 BP 114/68 09/14/23 07:31 Pulse Ox 95 09/14/23 07:31 O2 Del Method Room Air 09/14/23 07:31 BMI result Body Mass Index 20.6 General: AO X 3, no acute distress Resp: CTA bilateral CVS: S1,S2,RRR GI: +BS, NT, no distention Skin: No rash Neuro: motor grossly intact Psych: appropriate affect Objective Data Active Medications Acetaminophen (Acetaminophen 325 Mg Tablet) 650 mg PO Q6H PRN PRN Reason: Pain, Mild (Pain Scale 1-3) Last Admin: 09/10/23 07:32 Dose: 650 mg Documented By: NELY Apixaban (Apixaban 2.5 Mg Tablet) 2.5 mg PO BID [facility] Last Admin: 09/14/23 08:26 Dose: 2.5 mg Documented By: KYUNG Atorvastatin Calcium (Atorvastatin Calcium 80 Mg Tablet) 80 mg PO DAILY [facility] Last Admin: 09/14/23 08:26 Dose: Not Given Documented By: KYUNG Non-Admin Reason: Patient Refused Magnesium Hydroxide (Milk Of Magnesia 30 Ml Oral.Susp) 30 ml PO DAILY PRN PRN Reason: Constipation Ondansetron HCl (Ondansetron Hcl 4 Mg/2 Ml Vial) 4 mg IVPUSH Q8H PRN PRN Reason: Nausea and Vomiting Sodium Chloride (0.9 % Sodium Chloride Flush 3 Ml Syringe) 3 ml IVFLUSH QSHIFT [facility] Last Admin: 09/14/23 07:24 Dose: 3 ml Documented By: KYUNG Labs 09/10/23 04:08 09/10/23 04:08 Assessment and Plan (1) Ataxia: Status: Acute Plan 83 year old female with history of paroxysmal atrial fibrillation s/p cardioversion anticoagulated with eliquis admitted for further management of gait ataxia with concern for posterior cva. #Gait ataxia/vertigo--No stroke by MRI or CT -Neuro consult recommends cervical spine mri which show 1. At C5-C6, there is trace retrolisthesis and multifactorial degenerative changes resulting in severe spinal canal stenosis with mild cord flattening and suspected severe right and moderate left neural foraminal narrowing. No definite cord signal abnormality within the limitations of motion. 2. At C6-C7, there is mild spinal canal stenosis and suspected severe left and mild right neural foraminal narrowing. 3. At C4-C5, there is severe right neural foraminal narrowing These appear to be chronic changes, will refer to neuroSurg on outpatient basis She is doing well ambulating with walker in the [place] #Paroxysmal atrial fibrillation- rate controlled on no meds -continue eliquis DVT prophyalxis- eliquis full code need for inpt: work up for unsteady gait to STR when bed available Quality Stroke Does the patient have a stroke diagnosis?: No Reason for No Anti-thrombotic by Day Two: Drug treatment not indicated VTE Prior VTE?: No VTE Risk Level:: Medical - moderate - high VTE Device Contraindication: Treatment Not Indicated VTE Drug Contraindication: N/A - Med Ordered
[2023-09-15 03:58] VITALS: BP 169/80; PULSE 106; RESP 18; TEMP 36.1; O2SAT 96
[2023-09-15 07:08] VITALS: BP 125/68; PULSE 93; RESP 16; TEMP 36.1; O2SAT 97
[2023-09-15] MEDS: 0.9 % Sodium Chloride Flush 3 ML SYRINGE IVFLUSH ×2 (08:39→16:28)
[2023-09-15] MEDS: Apixaban 2.5 MG TABLET PO ×2 (08:39→21:48)
[2023-09-15 11:30] VITALS: BP 124/69; PULSE 84; RESP 16; TEMP 36.5; O2SAT 98
--- NOTE | 2023-09-15 14:32 | HO.PM.IMPN ---
Subjective Subjective Date of Service: 09/15/23 Interval History: No new issues, continue to ambulate ok with walker and help Physical Exam Vital Signs: Vital Signs: Last Vital Signs Temp 97.7 F 09/15/23 11:30 Pulse 84 09/15/23 11:30 Resp 16 09/15/23 11:30 BP 124/69 09/15/23 11:30 Pulse Ox 98 09/15/23 11:30 O2 Del Method Room Air 09/15/23 11:30 BMI result Body Mass Index 20.6 General: AO X 3, no acute distress Resp: CTA bilateral CVS: S1,S2,RRR GI: +BS, NT, no distention Skin: No rash Neuro: motor grossly intact Psych: appropriate affect Objective Data Active Medications Acetaminophen (Acetaminophen 325 Mg Tablet) 650 mg PO Q6H PRN PRN Reason: Pain, Mild (Pain Scale 1-3) Last Admin: 09/10/23 07:32 Dose: 650 mg Documented By: NELY Apixaban (Apixaban 2.5 Mg Tablet) 2.5 mg PO BID [facility] Last Admin: 09/15/23 08:39 Dose: 2.5 mg Documented By: PATRICIA Atorvastatin Calcium (Atorvastatin Calcium 80 Mg Tablet) 80 mg PO DAILY [facility] Last Admin: 09/15/23 08:40 Dose: Not Given Documented By: PATRICIA Non-Admin Reason: Patient Refused Magnesium Hydroxide (Milk Of Magnesia 30 Ml Oral.Susp) 30 ml PO DAILY PRN PRN Reason: Constipation Ondansetron HCl (Ondansetron Hcl 4 Mg/2 Ml Vial) 4 mg IVPUSH Q8H PRN PRN Reason: Nausea and Vomiting Sodium Chloride (0.9 % Sodium Chloride Flush 3 Ml Syringe) 3 ml IVFLUSH QSHIFT [facility] Last Admin: 09/15/23 08:39 Dose: 3 ml Documented By: PATRICIA Labs 09/10/23 04:08 09/10/23 04:08 Assessment and Plan (1) Ataxia: Status: Acute Plan 83 year old female with history of paroxysmal atrial fibrillation s/p cardioversion anticoagulated with eliquis admitted for further management of gait ataxia with concern for posterior cva. #Gait ataxia/vertigo--No stroke by MRI or CT -Neuro consult recommends cervical spine mri which show 1. At C5-C6, there is trace retrolisthesis and multifactorial degenerative changes resulting in severe spinal canal stenosis with mild cord flattening and suspected severe right and moderate left neural foraminal narrowing. No definite cord signal abnormality within the limitations of motion. 2. At C6-C7, there is mild spinal canal stenosis and suspected severe left and mild right neural foraminal narrowing. 3. At C4-C5, there is severe right neural foraminal narrowing These appear to be chronic changes, will refer to neuroSurg on outpatient basis She is doing well ambulating with walker in the [place] #Paroxysmal atrial fibrillation- rate controlled on no meds -continue eliquis DVT prophyalxis- eliquis full code need for inpt: work up for unsteady gait to STR when insurance authorization is obtained Quality Stroke Does the patient have a stroke diagnosis?: No Reason for No Anti-thrombotic by Day Two: Drug treatment not indicated VTE Prior VTE?: No VTE Risk Level:: Medical - moderate - high VTE Device Contraindication: Treatment Not Indicated VTE Drug Contraindication: N/A - Med Ordered
[2023-09-15 15:10] VITALS: BP 158/98; PULSE 16; RESP 97; TEMP 36.6; O2SAT 98
[2023-09-15 19:39] VITALS: BP 127/70; PULSE 80; RESP 16; TEMP 36.7; O2SAT 97
[2023-09-16] VITALS: BP 152/96; PULSE 96; RESP 16; TEMP 36.3; O2SAT 98
[2023-09-16 03:30] VITALS: BP 128/94; PULSE 78; RESP 16; TEMP 36.2; O2SAT 97
[2023-09-16 07:21] VITALS: BP 139/73; PULSE 94; RESP 16; TEMP 36.2; O2SAT 96
[2023-09-16] MEDS: Apixaban 2.5 MG TABLET PO (07:56)
[2023-09-16] MEDS: 0.9 % Sodium Chloride Flush 3 ML SYRINGE IVFLUSH (07:56)
--- NOTE | 2023-09-16 10:13 | MHC.CM.PN ---
Addendum entered by Cesia Cole 09/16/23 13:12: [facility] HAS OBTAIN[facility] INSURANCE AUTH. RN AWARE AND BLS TRANSPORT BOOKED FOR 3 PM VIA [facility]. DAUGHTER/HCP SCOUT UPDATED Original Note: DP: PT HAS BEEN MEDICALLY CLEARED FOR DC TO [facility]. [facility] HAS OFFER[facility] A BED AND PT ACCEPTS. CM AWAITING INSURANCE AUTH FROM CENTER.
[2023-09-16 12:00] VITALS: BP 116/71; PULSE 96; RESP 16; TEMP 36.3; O2SAT 96
[2023-09-16 14:48] VITALS: BP 108/64; PULSE 97; RESP 16; TEMP 36.2; O2SAT 97
== END 2023-09-16 16:31 | disposition skilled nursing facility (03) | DRG 92 ==
LOC: HO.ED 15:21 → HO.EDOVER 16:39 → HO.IMC 09-11 07:57 → HO.S3 09-11 14:55
PROVIDERS: Admitting Provider Physician Assistant; Emergency Provider Emergency Medicine Emergency Medical Services; PCP Nurse Practitioner Family; Visit Provider Internal Medicine
DX: R27.0 Ataxia, unspecified (principal); I48.0 Paroxysmal atrial fibrillation; G99.2 Myelopathy in diseases classified elsewhere; M43.12 Spondylolisthesis, cervical region; I95.9 Hypotension, unspecified; M48.02 Spinal stenosis, cervical region; Z87.891 Personal history of nicotine dependence; Z79.01 Long term (current) use of anticoagulants
CPT/HCPCS: 36415; 70450; 70551; 71045; 72141; 80048; 80053; 80061; 82272; 83690; 83735; 84443; 84484; 85025; 85610; 85730; 92950; 93005; 93306; 93880; 97110; 97112; 97116; 97162; 97166; 97530; 97535; 99285; J2060; Q9957

== ENCOUNTER → 2023-09-09 11:57 | Outpatient (BNV) | payer MEDICARE, SELFPAY | PROVIDERS: Admitting Provider Physician Assistant; Emergency Provider Emergency Medicine Emergency Medical Services; PCP Nurse Practitioner Family; Visit Provider Internal Medicine Cardiovascular Disease | DX: R94.31 Abnormal electrocardiogram [ECG] [EKG] (principal) | CPT/HCPCS: 93010 ==

== ENCOUNTER 2023-09-09 16:30 | Outpatient (BNV) | payer MEDICARE, SELFPAY | END 2023-09-10 07:00 | PROVIDERS: Admitting Provider Physician Assistant; Emergency Provider Emergency Medicine Emergency Medical Services; PCP Nurse Practitioner Family; Visit Provider Internal Medicine Cardiovascular Disease | DX: R93.1 Abnormal findings on diagnostic imaging of heart and coronary circulation (principal); I63.9 Cerebral infarction, unspecified | CPT/HCPCS: 93306 ==

== ENCOUNTER → 2023-09-09 16:30 | Outpatient (BNV) | payer MEDICARE, SELFPAY | PROVIDERS: Admitting Provider Physician Assistant; Emergency Provider Emergency Medicine Emergency Medical Services; PCP Nurse Practitioner Family; Visit Provider Psychiatry & Neurology Neurology | DX: R27.0 Ataxia, unspecified (principal) | CPT/HCPCS: 99222 ==

== ENCOUNTER → 2023-09-09 16:30 | Outpatient (BNV) | payer MEDICARE, SELFPAY | PROVIDERS: Admitting Provider Physician Assistant; Emergency Provider Emergency Medicine Emergency Medical Services; PCP Nurse Practitioner Family; Visit Provider Physician Assistant | DX: R27.0 Ataxia, unspecified (principal) | CPT/HCPCS: 99223; 99231; 99232; 99239 ==

== ENCOUNTER 2023-09-30 13:30 | Emergency (ER) | payer MEDICARE, SELFPAY ==
[2023-09-30] VITALS (7 sets, daily range): BP systolic 148–185; BP diastolic 79–102; PULSE 71–94; RESP 11–21; TEMP 36.7–37.1; O2SAT 95–98; BMI 21.6
--- NOTE | ~2023-09-30 | CT_ITS ---
EXAMINATION: CT head/brain wo IV con CLINICAL INFORMATION: None available at the time of dictation. COMPARISON: CT head without contrast 09/09/2023 TECHNIQUE: Contiguous axial imaging was performed from the skull base to vertex without intravenous contrast. Sagittal and coronal reformatted images were obtained. This CT examination was performed using dose optimization techniques as appropriate, variously including the following: * Automated exposure control * Adjustment of mA and/or kV according to patient size (this includes techniques or standardized protocols for targeted exams where dose is matched to indication/reason for exam; i.e. extremities or head) Use of iterative reconstruction technique DLP: 580 mGy-cm FINDINGS: No acute osseous or soft tissue abnormality. The mastoid air cells and visualized portions of the paranasal sinuses are well aerated. There is no evidence of acute intracranial hemorrhage or territorial infarction. No abnormal mass effect or midline shift is seen. Newell to white matter differentiation is well preserved. No extra-axial fluid collections are identified. No hydrocephalus. Proportional prominence of the ventricles and sulcal spaces related to volume loss. Patchy periventricular and deep white matter hypoattenuation is consistent with moderate small vessel ischemic changes. CT/CT head/brain wo IV con IMPRESSION: Radiology interpretation was provided under catastrophic downtime procedures. No acute intracranial abnormality including hemorrhage, mass effect, hydrocephalus, or acute territorial edematous infarction.
--- NOTE | 2023-09-30 16:34 | ECG_ITS ---
Test Reason : SYNCOPE Blood Pressure : / mmHG Vent. Rate : 076 BPM Atrial Rate : 076 BPM P-R Int : 136 ms QRS Dur : 076 ms QT Int : 380 ms P-R-T Axes : 000 203 186 degrees QTc Int : 427 ms Normal sinus rhythm Right superior axis deviation T wave abnormality, consider inferior ischemia Abnormal ECG When compared with ECG of 09-SEP-2023 12:10, QRS axis Shifted left (?lead placement issue) Referred By: Destin Hollins Electronically Signed By:MARISOL SANCHEZ
--- NOTE | 2023-09-30 16:38 | ED.GENADULT ---
HPI - General Adult General Chief complaint: General Medical Stated complaint: HTN 168/88,WEAK,DIZZY,GOMEZ ON THINNERS PER EMS Time Seen by Provider: 09/30/23 16:21 History of Present Illness ED Provider: sarahi DUNCAN narrative: Patient with history of atrial fibrillation on Eliquis been under increased stress as her released from rehab who has severe dementia having behavioral problems visiting nurse checked her blood pressure was elevated in 160s patient has mild headache no nausea no vomiting Related Data Home Medications ?Medication ?Instructions ?Recorded ?Confirmed apixaban 2.5 mg tablet (Eliquis) 2.5 mg PO BID 07/08/23 09/09/23 Previous Rx's ?Medication ?Instructions ?Recorded losartan 25 mg tablet 25 mg PO DAILY #30 tabs 09/30/23 Allergies Allergy/AdvReac Type Severity Reaction Status Date / Time amoxicillin Allergy Intermediate Gastrointestinal Verified 09/30/23 14:02 Upset metoprolol Allergy Intermediate Unresponsiv Verified 09/30/23 14:02 e metronidazole [From Flagyl] Allergy Unknown Verified 09/30/23 14:02 Review of Systems Review of Systems: Yes all other systems are reviewed and are negative [facility] Past Medical History Medical History Cerebral ventriculomegaly Atrial fibrillation History of cardioversion Surgical History H/O cardiac radiofrequency ablation Social History Social History Household Members: Spouse Housing: House Do you presently have visiting nurse or other home services: No Alcohol intake: never Patient Tobacco Use Status: Former Tobacco user Smoked in Last 30 Days: No Advance Directives: Yes Advance Directives on File: Yes Advance Directives Date on File: 09/17/23 Do you have a plan to hurt others: No Plan service: No Current occupational status: retired Physical Exam ED Vital Signs: Vital Signs - 24 hr 09/30/23 13:57 09/30/23 14:48 09/30/23 17:50 Temperature 98.3 F 98.1 F Pulse Rate 90 71 94 Respiratory Rate 20 21 H Blood Pressure 169/88 H 149/80 H 162/79 H Pulse Oximetry 96 95 Oxygen Delivery Method Room Air Room Air 09/30/23 17:51 09/30/23 17:51 09/30/23 17:52 Temperature 98.7 F Pulse Rate 81 90 94 Respiratory Rate 11 L Blood Pressure 152/82 H 169/97 H 162/79 H Pulse Oximetry 95 Oxygen Delivery Method Room Air 09/30/23 20:07 09/30/23 20:36 Temperature 98.7 F Pulse Rate 90 Respiratory Rate 12 Blood Pressure 148/89 H 148/89 H Pulse Oximetry 95 Oxygen Delivery Method Room Air BMI result Body Mass Index 21.6 Appearance: Alert. Oriented X3. No acute distress. Eyes: PERRLA, No Nystagmus ENT: Pharynx normal. Oral Mucosa moist Neck: Normal inspection. Neck supple. CVS: Normal heart rate and rhythm. Pulses normal. Respiratory: No respiratory distress. Equal air entry bilateral, no wheezing/rales/rhonchi Abdomen: Soft and nontender. Bowel sounds are present, no mass palpable, no CVA tenderness Skin: Skin warm and dry. Normal skin color. Normal skin turgor. Extremities: No lower extremity edema. No calf tenderness Neuro: Oriented X 3. No motor deficit. No sensory deficit.No cerebellar signs , cranial nerves II-XII intact Medications Administered Discontinued Medications Generic Name Dose Route Start Last Admin Trade Name Freq PRN Reason Stop Dose Admin Losartan Potassium 50 mg 09/30/23 19:27 09/30/23 20:07 Losartan Potassium 50 Mg Tablet PO 09/30/23 19:28 50 mg ONCE ONE Administration Protocol Medical Decision Making Medical Decision Making MDM Narrative: Patient with slightly elevated blood pressure with increased stress at home multiple reading revealed elevated pressure will start patient on low-dose losartan 25 mg daily Lab Data 09/30/23 17:41 09/30/23 17:41 Labs: Lab Results 09/30/23 Range/Units 17:41 WBC 7.6 (4.8-10.8) X10*3/uL RBC 4.79 (4.20-5.50) X10*6/uL Hgb 14.9 (12.0-16.0) g/dl Hct 44.0 (37.0-47.0) % MCV 91.9 (80.0-98.0) fL MCH 31.1 (27.0-33.0) pg MCHC 33.9 (31.0-35.0) g/dl RDW 12.7 (11.0-16.0) % Plt Count 149 L (160-400) X10*3/uL MPV 11.2 (9.4-12.3) fL Immature Gran % (Auto) 0.4 (0.0-0.4) % Neut % (Auto) 69.6 (45-73) % Lymph % (Auto) 21.4 (20-40) % Teller % (Auto) 7.2 (2-11) % Eos % (Auto) 0.9 (0-4) % Baso % (Auto) 0.5 (0-2) % Lymph # (Auto) 1.6 (1.2-4.9) X10*3/uL Teller # (Auto) 0.6 (0.1-1.2) X10*3/uL Eos # (Auto) 0.1 (0.0-0.4) X10*3/uL Baso # (Auto) 0.0 (0.0-0.2) X10*3/uL Abs Immat Gran (auto) 0.03 (0.00-0.03) X10*3/uL Absolute Neuts (auto) 5.3 (2.0-8.3) x10*3/uL Absolute Nucleated RBC 0.000 (0.0-0.012) X10*3/uL Nucleated RBC % (auto) 0.0 (0.0-0.2) /100WBC Sodium 136 (135-145) mmol/L Potassium 3.9 (3.3-5.1) mmol/L Chloride 98 (96-108) mmol/L Carbon Dioxide 30 H (22-29) mmol/L Anion Gap 12 (12-20) BUN 7 L (9-16) mg/dL Creatinine 0.68 (0.5-1.4) mg/dL Estim Creat Clear Calc 48.7 Estimated GFR > 60 Random Glucose 94 (60-115) mg/dL Calcium 10.4 H D (8.4-10.2) mg/dL Total Bilirubin 0.8 (0.0-1.0) mg/dL AST 23 (5-31) U/L ALT 30 (0-31) U/L Alkaline Phosphatase 75 (39-117) U/L Troponin I High Sens < 2.7 (<3.5-17.0) ng/L Total Protein 7.7 (6.5-8.0) g/dL Albumin 4.4 (3.5-5.0) g/dL Discharge Plan Discharge Clinical Impression: Hypertension Patient Disposition: Home, Self-Care Instructions: Hypertension (ED) Additional Instructions: Your slightly elevated blood pressure Normal blood pressure should be less than 135/85 Decrease salt intake Start taking losartan 25 mg daily check blood pressure twice daily Follow-up with your staff field engineer Prescriptions: New losartan 25 mg tablet 25 mg PO DAILY Qty: 30 0RF No Action Eliquis 2.5 mg tablet 2.5 mg PO BID Interventions: ED Discharge Assessment Last Done: 09/30/23 20:36 Discharge Date/Time: 09/30/23 20:30 Print Language: Syriac
[2023-09-30 17:46] LABS: MANUAL DIFF FLAG NO
[2023-09-30 18:01] LABS: Alanine Aminotransferase 30 U/L (0-31); Albumin Level 4.4 g/dL (3.5-5.0); Alkaline Phosphatase 75 U/L (39-117); Anion Gap 12 (12-20); Aspartate Amino Transferase 23 U/L (5-31); Bilirubin Total 0.8 mg/dL (0.0-1.0); Blood Urea Nitrogen 7 mg/dL (9-16); Calcium 10.4 mg/dL (8.4-10.2); Carbon Dioxide 30 mmol/L (22-29); Chloride 98 mmol/L (96-108); Creatinine Clr Calc Pharmacy 48.7; Estimated Glomerular Filt Rate > 60; Glucose Random 94 mg/dL (60-115); Potassium 3.9 mmol/L (3.3-5.1); Sodium 136 mmol/L (135-145); Total Protein 7.7 g/dL (6.5-8.0)
[2023-09-30 18:10] LABS: Troponin-I High Sensitivity < 2.7 ng/L (<3.5-17.0)
[2023-09-30 18:23] LABS: Basophils Percent Auto 0.5 % (0-2); Eosinophils Absolute Auto 0.1 X10*3/uL (0.0-0.4); Eosinophils Percent Auto 0.9 % (0-4); Hemoglobin 14.9 g/dl (12.0-16.0); Imm Gran Abs Auto 0.03 X10*3/uL (0.00-0.03); Imm Gran Pct Auto 0.4 % (0.0-0.4); Lymphocytes Absolute Auto 1.6 X10*3/uL (1.2-4.9); Lymphocytes Percent Auto 21.4 % (20-40); Mean Corpuscular HGB Conc 33.9 g/dl (31.0-35.0); Mean Corpuscular Hemoglobin 31.1 pg (27.0-33.0); Mean Corpuscular Volume 91.9 fL (80.0-98.0); Mean Platelet Volume 11.2 fL (9.4-12.3); Monocytes Absolute Auto 0.6 X10*3/uL (0.1-1.2); Monocytes Percent Auto 7.2 % (2-11); Neutrophils Absolute Auto 5.3 x10*3/uL (2.0-8.3); Neutrophils Percent Auto 69.6 % (45-73); Platelet Count 149 X10*3/uL (160-400); Red Blood Count 4.79 X10*6/uL (4.20-5.50); Red Cell Distribution Width 12.7 % (11.0-16.0); White Blood Count 7.6 X10*3/uL (4.8-10.8)
--- NOTE | 2023-09-30 19:59 | MHC.CM.ED ---
CM received consult from Dr. Hollins regarding this patient. Pt is A&Ox4. Lives with her , who has dementia. She was hospitalized at [facility] from09/08-09/15 and was [facility]. [facility]. Pt has a cane and walker for ataxia. Her HCP is her daughter, Michelle ([phone]).She has an appointment with [facility] this month to try and get some services for her . She attends a support group at the [facility] for caregivers. She feels she is more stressed at home with her husbands increasing dementia. She denies any physical abuse and tells CM she is safe at home. She states her can be difficult verbally and very set in his ways, but not aggressive. Again, CM asked if she felt safe at home. Pt states she is safe, just stressed. Daughter lives in [place] and just returned home and her son lives in [place]. CM spoke with patient at length regarding need for family meeting to discuss her husbands care needs and potentially alternative living situation if she is unable to care for him. Pt states she can care for him now, as he is pretty independent. He does not cook much, and still drives. She does express some concerns about him driving. CM advised patient to call 911 if she feels unsafe or is concerned about increasing behaviors. Pt was worried he would be arrested. CM explained that her would be brought to the ED for evaluation. CM again stressed family meeting with her children to discuss concerns before they escalate. There are some funds for care. Pt is agreeable to be discharged home. Will arrange transport home. Dr. Hollins aware of above conversations.
[2023-09-30] MEDS: Losartan Potassium 50 MG TABLET PO (20:07)
== END 2023-09-30 20:30 | disposition home or self-care (01) ==
PROVIDERS: Emergency Provider Internal Medicine; PCP Nurse Practitioner Family
DX: R51.9 Headache, unspecified (principal); R55 Syncope and collapse; I48.91 Unspecified atrial fibrillation; I10 Essential (primary) hypertension; Z63.6 Dependent relative needing care at home
CPT/HCPCS: 36415; 70450; 80053; 84484; 85025; 93005; 99284

== ENCOUNTER → 2023-09-30 16:34 | Outpatient (BNV) | payer MEDICARE, SELFPAY | PROVIDERS: Emergency Provider Internal Medicine; PCP Nurse Practitioner Family; Visit Provider Internal Medicine | DX: R94.31 Abnormal electrocardiogram [ECG] [EKG] (principal) | CPT/HCPCS: 93010 ==